=== PATIENT | male | born 1960 | race Caucasian/White ===

== ENCOUNTER 2019-08-11 09:46 | Emergency (ER) | payer MEDICARE, SELFPAY ==
[2019-08-11 09:47] VITALS: BP 179/102; PULSE 100; RESP 19; TEMP 37.2; O2SAT 96; BMI 39.6
[2019-08-11 09:59] VITALS: BP 168/76; PULSE 100; RESP 19; TEMP 37.2; O2SAT 96; O2SAT 98
--- NOTE | 2019-08-11 10:12 | ED.DCSUM_ITS ---
History of Present Illness Chief Complaint: Shortness of Breath Informant: Patient Onset: Yesterday Current Severity: Mild Maximum Severity: Mild Narrative: Patient reports a history of asthma and gets bronchitis approximately twice a year. He states he went out for a walk yesterday after returning home felt increased shortness of breath and as if his lungs were very dry. He has not noted wheezing. He has been using his albuterol MDI without significant improvement. He does report having a mild cough over the past 2 or 3 days. He denies fever but has noted some chills. 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 - Past Medical History (1) Hypertension Status: Chronic (2) Asthma Status: Chronic (3) Sleep apnea Status: Chronic (4) GERD (gastroesophageal reflux disease) Status: Chronic (5) Back pain Status: Chronic (6) Anxiety Status: Chronic Past Medical History - Allergies and Home Meds Allergies/Adverse Reactions: Allergies meloxicam Allergy (Verified 08/11/19 09:47) Anaphylaxis citalopram Adverse Reaction (Verified 08/11/19 09:47) Vomiting verapamil Adverse Reaction (Verified 08/11/19 09:47) Nausea Primary Care Physician: Mervat Avina MD [Primary Care Provider] - 1 Week if not improving Prior records reviewed: Yes Surgical History: noncontributory Smoking Status: Former smoker Review of Systems General: Reports: Chills. Denies: Fever Eyes: Denies: Visual changes - bilaterally ENT: Denies: Bilateral ear pain Cardiovascular: Denies: Chest pain Respiratory: Reports: Dyspnea, Cough. Denies: Sputum Gastrointestinal: Denies: Abdominal pain, Nausea, Vomiting Musculoskeletal: Denies: Swelling, Extremity Pain Skin: Denies: Rash Neurological: Denies: Headache Allergy: Denies: Uticaria Physical Exam Vital Signs/Narrative: Vital Signs Temp Pulse Resp BP Pulse Ox 08/11/19 09:59 99.0 F 100 19 H 168/76 H 96 08/11/19 09:47 99.0 F 100 19 H 179/102 H 96 Inital Vital Signs reviewed: Yes General: Well nourished, Well developed ENT: Moist mucous membranes Neck: Supple Cardiovascular: Regular rate, Regular rhythm Respiratory: No distress, CTA bilaterally Abdomen: Soft, Nontender Extremities: Nontender Skin: Normal color, No rash Neurological: Alert, Normal Sensation Psychological: Normal affect Diagnostic/Tx/Re-eval Chest X-Ray - ED: 1 View, Read by ED Physician, Normal, Heart, Lungs, Mediastinum, No Infiltrates - Medical Decision Making Formal chest x-ray read by myself as no evidence of infiltrate. I discussed with the patient that symptoms are likely viral in nature. At this time I am unable to tell him if he has coronavirus. He does not qualify for testing at this time and is been instructed to monitor his symptoms at home. In light of his frequent bronchitis with asthma he asked about possibly being treated with Zithromax. He states this usually helps some. At this point we will write him a paper prescription. If he does not start to show improvement in the next 24 to 48 hours he will fill the prescription. ED Disposition - Plan for ED Patient: Disposition: Home or Assisted Living Diagnosis: Bronchitis Instructions: ED Bronchitis Asthmatic Prescriptions: Albuterol Aerosols [Ventolin Aerosols] 2.5 mg INHALATION Q4H PRN #25 vial Prescription Printed Azithromycin [Zithromax Z-Vazquez] 250 mg PO UD #1 box Prescription Printed Referrals: Mervat Avina MD [Primary Care Provider] - 1 Week if not improving
--- NOTE | 2019-08-11 10:20 | RAD_ITS ---
STUDY: X-RAY CHEST REASON FOR EXAM: Male, 59 years old. SOB, cough, congestion TECHNIQUE: Single AP portable view of the chest. COMPARISON: Comparison is made with prior examination dated April 08, 2017. FINDINGS: The lungs are clear and expanded. There is no demonstrated pleural abnormality. Normal size heart. Normal mediastinum and miles. Normal visualized pulmonary arteries. Normal visualized aortic arch and descending thoracic aorta. Normal visualized thoracic spine. Normal visualized ribs, clavicles, and shoulders. There is no demonstrated abnormality of the visualized soft tissue structures of the upper abdomen. RAD/Chest 1 View (Portable) IMPRESSION: Normal x-ray examination of the chest. Electronically Signed: Artur Crum, at 12:33 EDT , Service support ,
[2019-08-11 11:04] VITALS: BP 168/76; PULSE 100; RESP 19; TEMP 37.2; O2SAT 96
[2019-08-11 11:45] VITALS: BP 149/78; PULSE 82; RESP 22; O2SAT 97
--- NOTE | 2019-08-11 11:46 | ED.RN ---
THIS NURSE REVIEWED D/C INSTRUCTIONS WITH PT. PT VERBALIZED UNDERSTANDING OF INSTRUCTIONS. PT DENIES FURTHER NEEDS OR QUESTIONS AT THIS TIME. PT AMBULATES FROM ROOM ON OWN WITHOUT ASSISTANCE FROM STAFF
== END 2019-08-11 11:47 | disposition home or self-care (01) ==
PROVIDERS: Emergency Provider Emergency Medicine; PCP Internal Medicine
DX: J40 Bronchitis, not specified as acute or chronic (principal); I10 Essential (primary) hypertension; F41.9 Anxiety disorder, unspecified; Z87.891 Personal history of nicotine dependence
CPT/HCPCS: 71045; 99282

== ENCOUNTER 2020-03-21 21:10 | Emergency (ER) | payer MEDICARE, SELFPAY ==
[2020-03-21 21:11] VITALS: BP 243/113; PULSE 94; RESP 18; TEMP 36.4; O2SAT 97; BMI 37.3
--- NOTE | 2020-03-21 21:24 | ED.DCSUM_ITS ---
History of Present Illness Chief Complaint: General Illness Informant: Patient Onset: Days Context: Gradual Onset Timing: Continuous Narrative: Patient is a 59-year-old male with history of hypertension, anxiety and depr ession presenting with worsening fatigue and generalized malaise. Patient states he started Metformin 8 days ago. Is prescribed by the nurse practitioner at his PCP office. Starting 5 days ago he started feel fatigued have decreased appetite. He also notes a little bit of constipation which he has been taking Dulcolax for. Today when he got home he was having chills but no fevers. He states he has stomach flutters and dry throat. He also associated headache. He has had a dry cough today. He has had some body aches but attribute that to doing yard work on , 3 days ago. 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 He states it is common for his blood pressure to be elevated when he is not feeling good. He states he takes lisinopril 20 mg as well as HCTZ 12.5 mg for blood pressure. He is normal blood pressure is 170/90 per the patient. Patient denies any other complaints at this time. He has any vision changes, numbness or weakness. No associated chest pain. Past Medical History - Allergies and Home Meds Allergies/Adverse Reactions: Allergies meloxicam Allergy (Verified 03/21/20 21:15) Anaphylaxis citalopram Adverse Reaction (Verified 03/21/20 21:15) Vomiting verapamil Adverse Reaction (Verified 03/21/20 21:15) Nausea Primary Care Physician: Mervat Avina MD [Primary Care Provider] - Past Medical History: - - Hypertension, anxiety, diabetes mellitus, asthma Surgical History: noncontributory Lives: Alone Smoking Status: Former smoker Review of Systems General: Reports: Chills, Malaise. Denies: Fever, Sweats Eyes: Denies: Visual changes - bilaterally, Diplopia ENT: Denies: Bilateral ear pain, Rhinorrhea, Sore throat Cardiovascular: Denies: Chest pain, Palpitations Respiratory: Reports: Dyspnea, Cough. Denies: Dyspnea on exertion Gastrointestinal: Reports: Nausea. Denies: Abdominal pain, Vomiting, Diarrhea, Melena, Hematochezia Genitourinary: Denies: Dysuria, Hematuria, Frequency Musculoskeletal: Reports: Myalgias, Back pain. Denies: Extremity Pain Skin: Denies: Rash, Wounds Neurological: Reports: Headache. Denies: Weakness, Numbness Physical Exam Vital Signs/Narrative: Vital Signs Temp Pulse Resp BP Pulse Ox 03/21/20 21:11 97.6 F L 94 18 243/113 H 97 Inital Vital Signs reviewed: Yes General: Well nourished, Well developed, Obese, No Acute Distress Head: Normocephalic, Atraumatic Eyes: Perrl, EOMI ENT: Moist mucous membranes, No rhinorrhea, TM's clear Neck: Supple, Nontender, No JVD Cardiovascular: Regular rate, Regular rhythm, No murmurs Respiratory: No distress, CTA bilaterally, Chest nontender. Negative for: Rhonchi, Wheezing, Diminished Abdomen: Soft, Nontender, Nondistended, Normal bowel sounds. Negative for: Guarding, Rebound tenderness Back: Nontender, Normal Inspection. Negative for: CVA tenderness Extremities: Nontender, No edema. Negative for: Edema Skin: Normal color, No rash Neurological: Alert, Oriented x3, Cranial nerves II-XII grossly intact, Normal Strength, Normal Sensation Psychological: Normal affect, Normal Mood Diagnostic/Tx/Re-eval Chest X-Ray - ED: 1 View, Read by ED Physician, Read by Radiologist, No Acute Disease Clinical Impression(s) from Imaging Studies Chest X-Ray 03/21/20 21:55 IMPRESSION: No acute cardiopulmonary abnormality. at 2209 Reported and signed by: Didi Roland MD Electronically Signed: Didi Roland MD at 22:09 EST Tel , Service support , Laboratory Data 03/21/20 03/21/20 03/21/20 21:50 21:50 21:50 WBC 4.2 L RBC 4.74 Hgb 14.7 Hct 42.9 MCV 90.5 MCH 31.0 MCHC 34.3 RDW Std Deviation 40.6 RDW Coeff of Rose 12.3 Plt Count 231 MPV 9.2 Immature Gran % (Auto) 0.200 Neut % (Auto) 55.1 Lymph % (Auto) 26.2 [place] % (Auto) 14.4 H Eos % (Auto) 3.1 Baso % (Auto) 1.0 Absolute Neuts (auto) 2.3 Absolute Lymphs (auto) 1.09 Nucleated RBC % 0 Sodium 140 Potassium 3.7 Chloride 105 Carbon Dioxide 29.0 Anion Gap 6 BUN 13 Creatinine 1.00 Estim Creat Clear Calc 89.46 Est GFR (MDRD) Af Amer 99 Est GFR (MDRD) Non-Af 82 BUN/Creatinine Ratio 13.0 Glucose 130 H Lactic Acid 1.3 Calcium 9.3 Total Bilirubin 0.50 AST 29 ALT 56 Alkaline Phosphatase 58 Troponin I < 0.015 Total Protein 6.9 Albumin 3.8 Globulin 3.1 Albumin/Globulin Ratio 1.2 Lipase 306 Urine Color Urine Clarity Urine pH Ur Specific [place] Urine Protein Urine Glucose (UA) Urine Ketones Urine Occult Blood Urine Nitrite Urine Bilirubin Urine Urobilinogen Ur Leukocyte Esterase Urine RBC Urine WBC Ur Squamous Epith Cells Urine Bacteria Urine Mucus 03/21/20 21:50 WBC RBC Hgb Hct MCV MCH MCHC RDW Std Deviation RDW Coeff of Rose Plt Count MPV Immature Gran % (Auto) Neut % (Auto) Lymph % (Auto) [place] % (Auto) Eos % (Auto) Baso % (Auto) Absolute Neuts (auto) Absolute Lymphs (auto) Nucleated RBC % Sodium Potassium Chloride Carbon Dioxide Anion Gap BUN Creatinine Estim Creat Clear Calc Est GFR (MDRD) Af Amer Est GFR (MDRD) Non-Af BUN/Creatinine Ratio Glucose Lactic Acid Calcium Total Bilirubin AST ALT Alkaline Phosphatase Troponin I Total Protein Albumin Globulin Albumin/Globulin Ratio Lipase Urine Color Yellow Urine Clarity Clear Urine pH 6.0 Ur Specific [place] 1.010 Urine Protein Negative Urine Glucose (UA) Normal Urine Ketones Negative Urine Occult Blood Negative Urine Nitrite Negative Urine Bilirubin Negative Urine Urobilinogen Normal Ur Leukocyte Esterase Negative Urine RBC 0 SEEN Urine WBC 0 SEEN Ur Squamous Epith Cells 0 SEEN Urine Bacteria 0 SEEN Urine Mucus 0 SEEN - Rhythm Strip Rhythm Strip: Sinus Rhythm Rate: 87 Ectopy: None - EKG Initial EKG Interpretation: Sinus Rhythm, - - Normal sinus rhythm rate of 87 Normal axis Normal intervals Normal ST segments - Medical Decision Making Patient is evaluated for worsening generalized malaise and feeling unwell. He recently started Metformin about a week ago for new onset diabetes mellitus is not sure if this is related. His symptoms actually sound more viral in nature. Patient is quite hypertensive upon arrival but has a normal neurologic exam. I do not think this is a hypertensive emergency. He is given 25 mg dose of hydrochlorothiazide in the ER. On repeat evaluation he still hypertensive but is improving. He is given IV fluids and Zofran. He states he is feeling a little better. Patient be swabbed for Covid but no acute process is found I do not think he needs admission at this time. He is not hypoxic and has clear breath sounds. No acute infiltrate is seen. No significant electrolyte abnormality except for very mild hyperglycemia of 130. He does have a mild leukopenia of 4.2 which could be consistent with a Covid infection. Patient is given quarantine instructions. He is encouraged to follow-up with his primary care doctor. ED Disposition - Plan for ED Patient: Disposition: Home or Assisted Living Diagnosis: Malaise and fatigue, Suspected COVID-19 virus infection, Hypertension Instructions: ED Hypertension Established Prescriptions: Ondansetron [Zofran Odt] 4 mg PO Q8H PRN PRN #10 tab PRN Reason: Nausea Transmission Status: Pending to [id number] Referrals: Mervat Avina MD [Primary Care Provider] - Additional Instructions: The exact cause of your presentation today is not clear. Your blood pressure was quite elevated please follow-up with your primary care doctor for this. I have a lower suspicion this is a medication side effect however it is possible. Your blood work was normal today. You were tested for COVID-19. This will take a couple days to come back. Please quarantine until your results come back.
--- NOTE | 2020-03-21 21:24 | EKG12_ITS ---
Test Reason : DYSRYTHMIA Blood Pressure : / mmHG Vent. Rate : 087 BPM Atrial Rate : 087 BPM P-R Int : 166 ms QRS Dur : 094 ms QT Int : 368 ms P-R-T Axes : 061 005 046 degrees QTc Int : 442 ms Normal sinus rhythm Normal ECG Confirmed by BREANA CARABALLO, MISSY ([id number]), dictionary editor DAFNE BAXTER ([id number]) on 03/22/2020 2:06:48 PM Referred By: HERNÁN Confirmed By:MISSY TOUSSAINT MD
--- NOTE | 2020-03-21 21:55 | RAD_ITS ---
HISTORY: New diabetic. started metformin last week and states has felt Tquot;badTquot; ever since. c/o fatigue, [place], nausea, constipation, bloating ADDITIONAL HISTORY: None provided. EXAMINATION/TECHNIQUE: XR Chest 1 View AP/PA Number of images including paperwork: 1 COMPARISON: 08/11/2019 FINDINGS: LUNGS AND PLEURA: No consolidation, mass or pleural effusion. CARDIAC SILHOUETTE: Unremarkable. MEDIASTINUM AND MARIUSZ: Unremarkable. UPPER ABDOMEN: Unremarkable. SKELETON AND SOFT TISSUES: No acute skeletal findings. Degenerative changes. OTHER DEVICES AND HARDWARE: None. RAD/Chest 1 View (Portable) IMPRESSION: No acute cardiopulmonary abnormality. at 2209 Reported and signed by: Didi Roland MD Electronically Signed: Didi Roland MD at 22:09 EST Tel , Service support ,
[2020-03-21 21:59] LABS: Bacteria 0 SEEN /hpf (None Seen); Mucous, Urine 0 SEEN /hpf (<or=2+); Red Blood Cells-Urine 0 SEEN /hpf (0-5); Squamous Epithelial Cells - UA 0 SEEN /hpf (0-5); White Blood Cells 0 SEEN /hpf (0-5)
[2020-03-21 22:02] LABS: Absolute Lymphocyte Count 1.09 X10^3/uL (0.83-4.51); Absolute Neutrophil Count 2.3 X10^3/uL (2.0-7.7); Basophil# 0.04 X10^3/uL; Color, Urine Yellow (Yellow); Eosinophil# 0.13 X10^3/uL; Eosinophils% 3.1 % (0-5); Glucose, Dipstick Normal (Normal); Hematocrit 42.9 % (40-54); Hemoglobin 14.7 g/dL (13.0-16.5); Ketone-Dipstick Negative (Negative); Leukocyte Esterase-Dipstick Negative /ul (Negative); Lymphocyte # 1.09 X10^3/ul (4.0); Lymphocyte % 26.2 % (19-41); Mean Corp Hgb Conc 34.3 g/dL (32-36); Mean Corpuscular Volume 90.5 fL (80-94); Mean Platelet Vol. 9.2 fl (6.2-12.0); Monocyte% 14.4 % (0-10); NRBC Flagged by Analyzer 0 % (0-5); Neutrophil # 2.29 X10^3/uL (2.7-7.7); Neutrophil % 55.1 % (47-70); Nitrite-Dipstick Negative (Negative); Occult Blood-Urine Negative /ul (Negative); Platelet Count 231 K/mm3 (150-450); Protein-Dipstick Negative (Negative); RBC Distribution Width CV 12.3 % (11.6-14.6); RBC Distribution Width SD 40.6 fl (35.1-43.9); Red Blood Count 4.74 M/mm3 (4.6-6.2); Urine Bilirubin Dipstick Negative (Negative); Urine Clarity Clear (Clear); Urine Urobilinogen Normal (Normal); White Blood Count 4.2 K/mm3 (4.4-11.0)
[2020-03-21] MEDS: Acetaminophen 325 MG Tablet 650 MG PO (22:26)
[2020-03-21 22:32] LABS: Lactic Acid 1.3 mmol/L (0.4-1.9)
[2020-03-21] MEDS: hydroCHLOROthiazide 25 MG Tablet PO (22:34)
[2020-03-21 22:38] LABS: ALB/GLOB Ratio 1.2 RATIO (0.9-2.4); AST(SGOT) 29 U/L (15-37); Alanine Aminotransfer ALT/SGPT 56 U/L (16-61); Albumin, Serum 3.8 g/dL (3.2-5.0); Alkaline Phosphatase 58 U/L (45-117); Anion Gap 6 (5-15); BUN 13 mg/dL (7-18); Calcium,Total 9.3 mg/dL (8.5-10.1); Chloride 105 mmol/L (98-107); EST Glomerular Filtration Rate 82 mL/min (>60); Est Glom Filt Rate - Afr Amer 99 mL/min (>60); Estimated Creatinine Clearance 89.46 ml/min; Globulin 3.1 g/dL (2.2-4.2); Glucose 130 mg/dL (74-106); Lipase 306 U/L (73-393); Potassium 3.7 mmol/L (3.5-5.1); Protein, Total 6.9 g/dL (6.4-8.2); Sodium Level 140 mmol/L (136-145)
[2020-03-21 23:21] VITALS: BP 196/106; PULSE 84; RESP 18; O2SAT 93
[2020-03-21] MEDS: Ondansetron 4 MG/2 ML Vial IV (23:36)
== END 2020-03-21 23:40 | disposition home or self-care (01) ==
PROVIDERS: Emergency Provider Emergency Medicine; PCP Internal Medicine
DX: U07.1 COVID-19 (principal); I10 Essential (primary) hypertension; E11.9 Type 2 diabetes mellitus without complications; J45.909 Unspecified asthma, uncomplicated; K59.00 Constipation, unspecified; F32.9 Major depressive disorder, single episode, unspecified; F41.9 Anxiety disorder, unspecified; E66.9 Obesity, unspecified; Z68.37 Body mass index [BMI] 37.0-37.9, adult; Z79.84 Long term (current) use of oral hypoglycemic drugs; Z79.899 Other long term (current) drug therapy; Z87.891 Personal history of nicotine dependence
CPT/HCPCS: 71045; 80053; 81001; 83605; 83690; 84484; 85025; 87635; 93005; 96361; 96374; 99285; J7040; A4216; J2405; U0002; U0003

== ENCOUNTER 2020-06-06 20:36 | Emergency (ER) | payer MEDICARE, SELFPAY ==
[2020-06-06 20:37] VITALS: BP 213/111; PULSE 80; RESP 17; TEMP 35.3; O2SAT 97; BMI 38.3
--- NOTE | 2020-06-06 21:41 | ED.VIS.BACK ---
History of Present Illness Chief Complaint: Back Informant: Patient Narrative: Patient is a 59-year-old male presenting with back pain. He states he was bending down and twisting when he felt his back spasm. He tried stretching out with no relief. The pain has been persistent and radiates around to his thighs and groin bilaterally. He denies any associated incontinence or paresthesias. Denies any weakness of his legs. Pain is worse with movement and range of motion. He did take Tylenol prior to arrival with no significant relief. Patient did drive himself here. No other complaints at this time. Past Medical History - Allergies and Home Meds Allergies/Adverse Reactions: Allergies meloxicam Allergy (Verified 06/06/20 20:39) Anaphylaxis citalopram Adverse Reaction (Verified 06/06/20 20:39) Vomiting verapamil Adverse Reaction (Verified 06/06/20 20:39) Nausea Primary Care Physician: Mervat Avina MD [Primary Care Provider] - Past Medical History: - - Degenerative disc disease, diabetes, hypertension Surgical History: noncontributory Smoking Status: Former smoker Review of Systems General: Denies: Chills, Fever, Sweats Eyes: Denies: Visual changes - bilaterally, Diplopia ENT: Denies: Rhinorrhea, Sore throat Cardiovascular: Denies: Chest pain, Palpitations Respiratory: Denies: Dyspnea, Cough, Dyspnea on exertion Gastrointestinal: Denies: Abdominal pain, Nausea, Vomiting, Diarrhea, Melena, Hematochezia Genitourinary: Denies: Dysuria, Hematuria, Frequency Musculoskeletal: Reports: Back pain. Denies: Extremity Pain Skin: Denies: Rash, Wounds Neurological: Denies: Headache, Weakness, Numbness Physical Exam Vital Signs/Narrative: Vital Signs Temp Pulse Resp BP Pulse Ox 06/06/20 20:37 95.6 F L 80 17 213/111 H 97 Inital Vital Signs reviewed: Yes General: Well nourished, Well developed, Obese Head: Normocephalic, Atraumatic Eyes: Perrl, EOMI ENT: Moist mucous membranes, No rhinorrhea Neck: Supple, Nontender Cardiovascular: Regular rate, Regular rhythm, No murmurs Respiratory: No distress, CTA bilaterally, Chest nontender Abdomen: Soft, Nontender, Nondistended, Normal bowel sounds Back: Paraspinal Tenderness - Bilateral lumbar region diffusely. Muscle spasm appreciated in the upper lumbar paraspinal muscles., Negative SLR - Right, Negative SLR - Left. Negative for: Spinal tenderness, CVA tenderness Extremeties: Nontender, No edema, Strong Pulses, Symmetric, - - 2+ bilateral DP pulses Skin: Normal color, No rash Neuro: Alert, Oriented, Normal Strength, Normal Sensation, Normal DTR, - - 5 out of 5 strength with dorsi and plantar flexion bilaterally. Negative for: Weakness, Parasthesia Psychological: Normal affect Diagnostic/Tx/Re-eval - Medical Decision Making Patient evaluated for atraumatic low back pain. Appears to be associated with muscle spasm. He is not have physical exam findings consistent with sciatica. He does not have findings concerning for cauda equina syndrome. I did palpate muscle spasms in the paraspinal region of his lumbar back. As patient drove himself here he cannot be given anything sedating. He is given a Lidoderm patch. He took Tylenol prior to arrival. He has a history of anaphylaxis to meloxicam so will not give any NSAIDs at this time. Patient is given a prescription for Flexeril. He is counseled to use heat to for his back and to stretch. He will follow-up with his primary care doctor. Patient is counseled on signs and symptoms requiring return to the emergency room. Patient verbalizes agreement and understand this plan. Patient discharged home in stable and improved condition. ED Disposition - Plan for ED Patient: Disposition: Home or Assisted Living Diagnosis: Spasm of back muscles, Back pain Instructions: ED Back Spasm, No Trauma Prescriptions: cycloBENZAPRine HCl [Flexeril] 10 mg PO TID PRN #20 tab PRN Reason: Muscle Spasm Prescription Printed Referrals: Mervat Avina MD [Primary Care Provider] - Additional Instructions: Use heat to your back. Apply [id number] 4% Lidoderm patches if he found it helpful today. Continue take Tylenol every 6-8 hours for pain. Return to emergency room with worsening symptoms.
[2020-06-06] MEDS: Lidocaine 5% Patch 1 PATCH TOPICAL (21:50)
== END 2020-06-06 22:37 | disposition home or self-care (01) ==
PROVIDERS: Emergency Provider Emergency Medicine; PCP Internal Medicine
DX: M62.830 Muscle spasm of back (principal); I10 Essential (primary) hypertension; E66.9 Obesity, unspecified; Z68.38 Body mass index [BMI] 38.0-38.9, adult; Z79.899 Other long term (current) drug therapy; Z87.891 Personal history of nicotine dependence
CPT/HCPCS: 99282

== ENCOUNTER 2021-02-09 11:56 | Emergency (ER) | payer MEDICARE, SELFPAY ==
[2021-02-09 11:57] VITALS: BP 196/108; PULSE 100; RESP 18; TEMP 36.8; O2SAT 99; BMI 37.8
--- NOTE | 2021-02-09 12:28 | EKG12_ITS ---
Test Reason : SOB Blood Pressure : / mmHG Vent. Rate : 085 BPM Atrial Rate : 085 BPM P-R Int : 156 ms QRS Dur : 092 ms QT Int : 378 ms P-R-T Axes : 067 007 053 degrees QTc Int : 449 ms Normal sinus rhythm Normal ECG Confirmed by BREANA CARABALLO, MISSY ([id number]), publications editor ISELA GILES ([id number]) on 02/14/2021 7:31:18 AM Referred By: JORGE ALBERTO Confirmed By:MISSY TOUSSAINT MD
--- NOTE | 2021-02-09 12:29 | EDS_ITS ---
HPI History of Present Illness Chief Complaint: General Illness Narrative Narrative: Presented generalized illness stating not feeling well today. Headache increasing congestion today. He states 15 days ago had his congestion mild cough, he was tested for Covid 2 days after at [facility] and was negative. He is discussed with his PCP he finished a Z-Vazquez currently on a steroid taper he is feeling better up till yesterday. He took laxative yesterday therefore had diarrhea. Today congestion just not feeling well. No nausea or vomiting. No chest pains. Nonproductive cough. He is not Covid vaccinated. He states he had Covid infection this past February with transient loss of taste and smell and fatigued at that time. Asthma history. Hypertension history. Decreased p.o. intake. Prior similar symptoms: Yes PFSH [facility], LAT[facility] Medical History (Updated 02/09/21 @ 14:[address] Robi Chappell DO) Anxiety Asthma GERD (gastroesophageal reflux disease) HTN (hypertension) Home Medications albuterol sulfate [Ventolin Hfa] 1 puff INHALATION Q4H PRN PRN 05/05/13 [History Last Taken Unknown] lisinopril 40 mg PO DAILY 05/05/13 [History Last Taken Unknown] escitalopram oxalate 10 mg PO DAILY 07/23/15 [History Last Taken Unknown] albuterol sulfate 2.5 mg INHALATION Q4H PRN #25 vial 08/11/19 [Rx Last Taken Unknown] hydrochlorothiazide 12.5 mg PO DAILY 08/11/19 [History Last Taken Unknown] loratadine 10 mg PO DAILY 08/11/19 [History Last Taken Unknown] Cholecalciferol (Vitamin D3) [Vitamin D3] 5,000 unit PO DAILY 06/06/20 [History Last Taken Unknown] ascorbic acid (vitamin C) 500 mg PO DAILY 06/06/20 [History Last Taken Unknown] vitamin E 200 unit PO DAILY 06/06/20 [History Last Taken Unknown] felodipine 5 mg PO DAILY 02/09/21 [History Last Taken Unknown] fluticasone propion-salmeterol [Wixela Inhub] 1 inh INHALATION DAILY 02/09/21 [History Last Taken Unknown] prednisone See Taper PO DAILY 02/09/21 [History Last Taken Unknown] Allergy/AdvReac Type Severity Reaction Status Date / Time meloxicam Allergy Anaphylaxis Verified 02/09/21 11:59 citalopram AdvReac Vomiting Verified 02/09/21 11:59 verapamil AdvReac Nausea Verified 02/09/21 11:59 Social History Smoking Status: Former smoker ROS ROS ED Constitutional Constitutional ED: Denies chills, fever(s) or sweats Eyes Eyes: Denies change in vision ENT ENT ED: Reports other Details: Sinus congestion ; Denies dysphagia or sore throat Cardiovascular Cardiovascular: Denies chest pain, leg edema, palpitations or racing heartbeat Respiratory/Chest Respiratory/Chest: Reports cough; Denies dyspnea or dyspnea on exertion Gastrointestinal Gastrointestinal: Denies abdominal pain, diarrhea, nausea or vomiting Genitourinary Genitourinary ED: Denies dysuria, hematuria or urinary frequency Musculoskeletal Musculoskeletal: Denies back pain, extremity pain or neck pain Integumentary Denies rash or wounds Neurologic Neurologic: Reports headache(s); Denies paresthesias or weakness EXAM Physical Exam Const Vital Signs: 02/09/21 11:57 02/09/21 12:55 02/09/21 12:56 Temperature 98.2 F Temperature Source Temporal Pulse Rate 100 Respiratory Rate 18 Respiratory Effort Normal Non-Labored Respiratory Pattern Normal Blood Pressure 196/108 H 194/99 H Blood Pressure Mean 137 130 Pulse Ox 99 Oxygen Delivery Method Room Air 02/09/21 14:33 02/09/21 15:15 Temperature Temperature Source Pulse Rate 87 87 Respiratory Rate 13 16 Respiratory Effort Respiratory Pattern Blood Pressure 181/105 H 180/93 H Blood Pressure Mean 130 Pulse Ox 96 98 Oxygen Delivery Method Room Air Positive well nourished and well developed General Appearance ED: well developed and NAD HEENT Reports TM's clear and dry mucous membranes normocephalic and atraumatic Tympanic Membrane ED: Yes TM's clear Mouth ED: Yes dry mucous membranes Mouth: dry mucous membranes Eyes PERRL, EOMs intact bilaterally and conjunctivae normal General Eye ED: Yes normal appearance of both eyes Neck no lymphadenopathy and supple Neck Narrative: No meningismus General: Negative for tenderness Chest Wall Chest: Negative for tenderness Resp normal respiratory effort and normal air movement Effort and Inspection: symmetric chest movement; Negative for respiratory distress Cardio regular rate, regular rhythm and no murmurs Peripheral Pulses: pulses 2+ throughout GI normal to inspection, nondistended, normoactive bowel sounds and non-tender Palpation: Negative for guarding or rebound tenderness present Back/Spine no CVA tenderness and no thoracic nor lumbar tenderness Extremity normal to inspection General Extremety ED: Negative for edema or tenderness General Extremity: Negative for edema Neuro oriented x3, CN's II-XII intact bilaterally and no sensory deficits noted Sensorium / Orientation: awake and alert Skin no rashes or lesions noted and no wounds MDM MDM MDM Narrative Medical decision making narrative: Patient presenting headache recurrent nonproductive cough since yesterday. Chest x-ray negative. EKG labs stable. Given IV fluids. Patient more reassured. Vitals stable pulse ox 98%. Send out Covid testing for PCR as an outpatient. He will continue oral hydration at home. All questions were answered. Lab Data Attestation: I reviewed the patient's lab results. Labs: Laboratory Results - last 24 hr 02/09/21 02/09/21 02/09/21 12:45 12:45 15:05 WBC 7.5 RBC 5.13 Hgb 16.1 Hct 46.2 MCV 90.1 MCH 31.4 MCHC 34.8 RDW Std Deviation 40.9 RDW Coeff of Rose 12.5 Plt Count 279 MPV 8.5 Immature Gran % (Auto) 0.300 Neut % (Auto) 65.5 Lymph % (Auto) 23.1 [place] % (Auto) 8.0 Eos % (Auto) 2.3 Baso % (Auto) 0.8 Absolute Neuts (auto) 5.0 Absolute Lymphs (auto) 1.74 Nucleated RBC % 0 Sodium 138 Potassium 4.0 Chloride 100 Carbon Dioxide 32.0 Anion Gap 6 BUN 15 Creatinine 1.06 Estim Creat Clear Calc 78.43 Est GFR (MDRD) Af Amer 92 Est GFR (MDRD) Non-Af 76 BUN/Creatinine Ratio 14.2 Glucose 115 H Calcium 9.0 COVID-19 (NAVNEET) Cancelled Radiography Chest X-Ray - ED: 1 View, Read by ED Physician and Read by Radiologist Diagnostic Testing: Radiology Impression Chest X-Ray 02/09/21 12:50 IMPRESSION: Normal x-ray examination of the chest. Electronically Signed: Artur Crum MD at 13:12 EDT , Service support , EKG Initial EKG: Attestation: I personally reviewed and interpreted this EKG as follows: Comments: Sinus rate of 85, no ST or T wave changes. Discharge Plan Triage Chief Complaint: General Illness ED Provider: Robi Chappell Dx/Rx/DC Orders Clinical Impression: Suspected 2019-nCoV infection, Viral URI, Headache Instructions: Understanding Headache Pain, ED URI, Viral, No Abx (Adult) Prescriptions: No Action lisinopril 10 MG tablet 40 mg PO DAILY RF: 0 albuterol sulfate [Ventolin HFA] 1 INHALER inhaler 1 puff inhalation Q4H PRN PRN (Reason: Dyspnea) RF: 0 escitalopram oxalate 10 MG tablet 10 mg PO DAILY RF: 0 hydrochlorothiazide 25 MG tablet 12.5 mg PO DAILY RF: 0 loratadine 10 MG tablet 10 mg PO DAILY RF: 0 albuterol sulfate 2.5 MG/3 ML solution for nebulization 2.5 mg inhalation Q4H PRN Qty: 25 RF: 0 vitamin E 200 UNIT capsule 200 unit PO DAILY RF: 0 ascorbic acid (vitamin C) 500 MG capsule 500 mg PO DAILY RF: 0 Cholecalciferol (Vitamin D3) [Vitamin D3] 5,000 UNIT capsule 5,000 unit PO DAILY RF: 0 felodipine 5 mg tablet extended release 24 hr 5 mg PO DAILY RF: 0 fluticasone propion-salmeterol [Wixela Inhub] 100-50 mcg/dose blister with device 1 inh INHALATION DAILY RF: 0 prednisone 10 mg tablet See Taper mg PO DAILY RF: 0 Primary Care Provider: Mervat Avina Referrals: Mervat Avina MD [Primary Care Provider] - 1 Week if not improving Activity Restrictions/Additional Instructions: Covid PCR pending Disposition Disposition: Home, Self Care Discharge Date/Time: 02/09/21 15:16
[2021-02-09] MEDS: 0.9% Normal Saline 1,000 ML 1000 ML IV (12:43)
--- NOTE | 2021-02-09 12:50 | RAD_ITS ---
STUDY: X-RAY CHEST REASON FOR EXAM: Male, 60 years old. Cough TECHNIQUE: Single AP portable view of the chest. COMPARISON: Comparison is made with prior study dated 03/21/2020. FINDINGS: EKG electrodes are seen. The lungs are clear and expanded. There is no demonstrated pleural abnormality. Normal size heart. Normal mediastinum and miles. Normal visualized pulmonary arteries. Normal visualized aortic arch and descending thoracic aorta. Normal visualized thoracic spine. Normal visualized ribs, clavicles, and shoulders. There is no demonstrated abnormality of the visualized soft tissue structures of the upper abdomen. RAD/Chest 1 View (Portable) IMPRESSION: Normal x-ray examination of the chest. Electronically Signed: Artur Crum MD at 13:12 EDT , Service support ,
[2021-02-09 12:55] VITALS: BP 194/99
[2021-02-09 12:58] LABS: Absolute Lymphocyte Count 1.74 X10^3/uL (0.83-4.51); Basophil# 0.06 X10^3/uL; Basophil% 0.8 % (0-1); Eosinophil# 0.17 X10^3/uL; Eosinophils% 2.3 % (0-5); Hematocrit 46.2 % (40-54); Hemoglobin 16.1 g/dL (13.0-16.5); Lymphocyte # 1.74 X10^3/ul (0.83-4.51); Lymphocyte % 23.1 % (19-41); Mean Corp Hgb Conc 34.8 g/dL (32-36); Mean Corpuscular Hgb 31.4 pg (27.0-32.0); Mean Corpuscular Volume 90.1 fL (80-94); Mean Platelet Vol. 8.5 fl (6.2-12.0); NRBC Flagged by Analyzer 0 % (0-5); Neutrophil # 4.95 X10^3/uL (2.7-7.7); Neutrophil % 65.5 % (47-70); Platelet Count 279 K/mm3 (150-450); RBC Distribution Width CV 12.5 % (11.6-14.6); RBC Distribution Width SD 40.9 fl (35.1-43.9); Red Blood Count 5.13 M/mm3 (4.6-6.2); White Blood Count 7.5 K/mm3 (4.4-11.0)
[2021-02-09 13:12] LABS: Anion Gap 6 (5-15); BUN 15 mg/dL (7-18); BUN/Creat Ratio 14.2 RATIO (10-20); Chloride 100 mmol/L (98-107); Creatinine, Serum 1.06 mg/dL (0.70-1.30); EST Glomerular Filtration Rate 76 mL/min (>60); Est Glom Filt Rate - Afr Amer 92 mL/min (>60); Estimated Creatinine Clearance 78.43 ml/min; Glucose 115 mg/dL (74-106); Sodium Level 138 mmol/L (136-145)
[2021-02-09 14:33] VITALS: BP 181/105; PULSE 87; RESP 13; O2SAT 96
[2021-02-09 15:15] VITALS: BP 180/93; PULSE 87; RESP 16; O2SAT 98
[2021-02-09 17:44] LABS: Probe Check PASS; Specimen Processing Control PASS
== END 2021-02-09 15:16 | disposition home or self-care (01) ==
PROVIDERS: Emergency Provider Emergency Medicine; PCP Internal Medicine
DX: Z20.822 Contact with and (suspected) exposure to COVID-19 (principal); J06.9 Acute upper respiratory infection, unspecified; R51.9 Headache, unspecified; I10 Essential (primary) hypertension; J45.909 Unspecified asthma, uncomplicated; Z79.51 Long term (current) use of inhaled steroids; Z79.52 Long term (current) use of systemic steroids; Z79.899 Other long term (current) drug therapy; Z87.891 Personal history of nicotine dependence
CPT/HCPCS: 71045; 80048; 85025; 87635; 93005; 96360; 96361; 99285; J7030; U0005; U0003

== ENCOUNTER 2021-02-11 01:34 | Emergency (ER) | payer MEDICARE, SELFPAY ==
[2021-02-11 01:34] VITALS: BP 209/103; PULSE 83; RESP 22; TEMP 36.6; O2SAT 99; BMI 39.2
--- NOTE | 2021-02-11 02:45 | RAD_ITS ---
STUDY: X-RAY CHEST REASON FOR EXAM: Male, 60 years old. Hypertension TECHNIQUE: AP COMPARISON: 02/09/2021. FINDINGS: The lungs are clear and expanded. There is no demonstrated pleural abnormality. Normal size heart. Normal mediastinum and miles. Normal visualized pulmonary arteries. Normal visualized aortic arch and descending thoracic aorta. Normal visualized thoracic spine. Normal visualized ribs, clavicles, and shoulders. There is no demonstrated abnormality of the visualized soft tissue structures of the upper abdomen. RAD/Chest 1 View (Portable) IMPRESSION: Negative x-ray examination of the chest. Electronically Signed: Darwin Werner MD at 3:26 EDT Tel , Service support ,
--- NOTE | 2021-02-11 02:46 | EKG12_ITS ---
Test Reason : HTN Blood Pressure : / mmHG Vent. Rate : 071 BPM Atrial Rate : 071 BPM P-R Int : 166 ms QRS Dur : 090 ms QT Int : 388 ms P-R-T Axes : 058 020 039 degrees QTc Int : 421 ms Normal sinus rhythm Normal ECG Confirmed by BREANA CARABALLO, MISSY ([id number]), image editor ISELA GILES ([id number]) on 02/14/2021 8:06:04 AM Referred By: DEVORA Confirmed By:MISSY TOUSSAINT MD
[2021-02-11] MEDS: cloNIDine HCl 0.1 MG Tablet PO (02:52)
[2021-02-11 02:58] LABS: Absolute Lymphocyte Count 2.42 X10^3/uL (0.83-4.51); Absolute Neutrophil Count 2.8 X10^3/uL (2.0-7.7); Basophil# 0.05 X10^3/uL; Basophil% 0.8 % (0-1); Eosinophil# 0.18 X10^3/uL; Hematocrit 42.2 % (40-54); Hemoglobin 14.7 g/dL (13.0-16.5); Lymphocyte # 2.42 X10^3/ul (0.83-4.51); Lymphocyte % 40.7 % (19-41); Mean Corp Hgb Conc 34.8 g/dL (32-36); Mean Corpuscular Hgb 31.5 pg (27.0-32.0); Mean Corpuscular Volume 90.4 fL (80-94); Mean Platelet Vol. 8.8 fl (6.2-12.0); Monocyte# 0.48 X10^3/uL; Monocyte% 8.1 % (0-10); NRBC Flagged by Analyzer 0 % (0-5); Neutrophil # 2.79 X10^3/uL (2.7-7.7); Neutrophil % 47.1 % (47-70); Platelet Count 257 K/mm3 (150-450); RBC Distribution Width CV 12.3 % (11.6-14.6); RBC Distribution Width SD 40.4 fl (35.1-43.9); Red Blood Count 4.67 M/mm3 (4.6-6.2); White Blood Count 5.9 K/mm3 (4.4-11.0)
[2021-02-11 03:13] LABS: ALB/GLOB Ratio 1.1 RATIO (0.9-2.4); AST(SGOT) 21 U/L (15-37); Alanine Aminotransfer ALT/SGPT 54 U/L (16-61); Albumin, Serum 3.4 g/dL (3.2-5.0); Alkaline Phosphatase 55 U/L (45-117); Anion Gap 4 (5-15); BUN 13 mg/dL (7-18); BUN/Creat Ratio 13.3 RATIO (10-20); Calcium,Total 8.5 mg/dL (8.5-10.1); Chloride 105 mmol/L (98-107); Creatinine, Serum 0.98 mg/dL (0.70-1.30); EST Glomerular Filtration Rate 84 mL/min (>60); Est Glom Filt Rate - Afr Amer 101 mL/min (>60); Estimated Creatinine Clearance 84.84 ml/min; Globulin 3.1 g/dL (2.2-4.2); Glucose 121 mg/dL (74-106); Protein, Total 6.5 g/dL (6.4-8.2); Sodium Level 140 mmol/L (136-145); Troponin-I HS 11 pg/mL (3.0-78.0)
--- NOTE | 2021-02-11 03:29 | EX.ED.DYSGE1 ---
HPI History of Present Illness Chief Complaint: Hypertension Informant: patient Onset/Context/Timing Onset: Today Context: Sudden Onset Timing: Continuous Quality: Blurry vision Location: Left eye Worsened by: Nothing Relieved by: Nothing Narrative Narrative: Patient presents with elevated blood pressure that began today. Patient states he felt like he had some blurred vision in his left eye. Patient checked his blood pressure at home and it was 200/122. Patient denies any chest pain or shortness of breath. Patient admits to mild headache. Patient also admits to some pain in his neck. Patient states he was tested for Covid 2 days ago and was negative. Patient denies any other symptoms. Patient states nothing makes it better nothing makes it worse. [facility] Medical History (Updated 02/11/21 @ 04:[address] Mati Echevarria, ) Anxiety Asthma GERD (gastroesophageal reflux disease) HTN (hypertension) Home Medications albuterol sulfate [Ventolin Hfa] 1 puff INHALATION Q4H PRN PRN 05/05/13 [History Last Taken Unknown] lisinopril 40 mg PO DAILY 05/05/13 [History Last Taken Unknown] escitalopram oxalate 10 mg PO DAILY 07/23/15 [History Last Taken Unknown] albuterol sulfate 2.5 mg INHALATION Q4H PRN #25 vial 08/11/19 [Rx Last Taken Unknown] hydrochlorothiazide 12.5 mg PO DAILY 08/11/19 [History Last Taken Unknown] loratadine 10 mg PO DAILY 08/11/19 [History Last Taken Unknown] Cholecalciferol (Vitamin D3) [Vitamin D3] 5,000 unit PO DAILY 06/06/20 [History Last Taken Unknown] ascorbic acid (vitamin C) 500 mg PO DAILY 06/06/20 [History Last Taken Unknown] vitamin E 200 unit PO DAILY 06/06/20 [History Last Taken Unknown] felodipine 5 mg PO DAILY 02/09/21 [History Last Taken Unknown] fluticasone propion-salmeterol [Wixela Inhub] 1 inh INHALATION DAILY 02/09/21 [History Last Taken Unknown] prednisone See Taper PO DAILY 02/09/21 [History Last Taken Unknown] Allergy/AdvReac Type Severity Reaction Status Date / Time meloxicam Allergy Anaphylaxis Verified 02/09/21 11:59 citalopram AdvReac Vomiting Verified 02/09/21 11:59 verapamil AdvReac Nausea Verified 02/09/21 11:59 Surgical History (Updated 02/11/21 @ 03:[address] Mati Echevarria DO) History of total right hip replacement Social History Smoking Status: Former smoker ROS ROS ED Constitutional Constitutional ED: Denies chills or fever(s) Eyes Eyes: Reports blurry vision; Denies change in vision ENT ENT ED: Denies rhinorrhea or sore throat Cardiovascular Cardiovascular: Denies chest pain or palpitations Respiratory/Chest Respiratory/Chest: Denies cough or dyspnea Gastrointestinal Gastrointestinal: Denies nausea or vomiting Genitourinary Genitourinary ED: Denies dysuria or hematuria Musculoskeletal Musculoskeletal: Reports neck pain; Denies back pain Integumentary Denies abscess or rash Neurologic Neurologic: Reports headache(s); Denies weakness Allergic/Immunologic Allergic/Immunologic ED: Denies mouth swelling or urticaria EXAM Physical Exam Const Vital Signs: 02/11/21 01:34 02/11/21 03:38 Temperature 98 F Temperature Source Oral Pulse Rate 83 74 Respiratory Rate 22 H 20 H Blood Pressure 209/103 H 155/101 H Blood Pressure Mean 138 119 Pulse Ox 99 95 Oxygen Delivery Method Room Air Room Air Positive well nourished and well developed General Appearance ED: well developed HEENT Reports moist mucous membranes Neck supple and no JVD Resp normal respiratory effort and clear to auscultation bilaterally Cardio regular rate, regular rhythm and no murmurs GI normal to inspection, nondistended, normoactive bowel sounds and non-tender Palpation: soft Extremity normal to inspection General Extremety ED: Negative for edema or tenderness General Extremity: Negative for edema Neuro oriented x3, CN's II-XII intact bilaterally and no sensory deficits noted Sensorium / Orientation: alert Motor Exam: strength 5/5 throughout Psych mental status grossly normal Skin no rashes or lesions noted MDM MDM MDM Narrative Medical decision making narrative: Patient was given a dose of clonidine here. EKG was obtained. On my interpretation, it showed a normal sinus rhythm with a rate of 71. PA interval, QRS interval, and QTc intervals were all normal. Leonard was normal. There are no acute ST or T wave changes. Portable 1 view chest x-ray was obtained. On my interpretation, lung smith are clear. There is normal cardiac silhouette. Bony thorax is normal. There is no acute process noted. Radiologist also interpreted the x-ray and agrees. CBC and comprehensive metabolic profile were within normal limits. High-sensitivity troponin was normal. 2-hour repeat high-sensitivity troponin was normal. Patient's blood pressure improved to 147/91. Patient is feeling better on reevaluation. Patient was instructed to keep a log of his blood pressures. Patient was instructed to follow-up with his primary care physician in 5 to 7 days. Patient understood and was agreeable with the plan. All questions were answered. Lab Data Attestation: I reviewed the patient's lab results. Labs: Laboratory Results - last 24 hr 02/11/21 02/11/21 02/11/21 02:14 02:14 04:10 WBC 5.9 RBC 4.67 Hgb 14.7 Hct 42.2 MCV 90.4 MCH 31.5 MCHC 34.8 RDW Std Deviation 40.4 RDW Coeff of Rose 12.3 Plt Count 257 MPV 8.8 Immature Gran % (Auto) 0.300 Neut % (Auto) 47.1 Lymph % (Auto) 40.7 [place] % (Auto) 8.1 Eos % (Auto) 3.0 Baso % (Auto) 0.8 Absolute Neuts (auto) 2.8 Absolute Lymphs (auto) 2.42 Nucleated RBC % 0 Sodium 140 Potassium 4.0 Chloride 105 Carbon Dioxide 31.0 Anion Gap 4 L BUN 13 Creatinine 0.98 Estim Creat Clear Calc 84.84 Est GFR (MDRD) Af Amer 101 Est GFR (MDRD) Non-Af 84 BUN/Creatinine Ratio 13.3 Glucose 121 H Calcium 8.5 Total Bilirubin 0.40 AST 21 ALT 54 Alkaline Phosphatase 55 Troponin I High Sens 11 14 Total Protein 6.5 Albumin 3.4 Globulin 3.1 Albumin/Globulin Ratio 1.1 Radiography Chest X-Ray - ED: 1 View, Read by ED Physician, Read by Radiologist and Normal Diagnostic Testing: Radiology Impression Chest X-Ray 02/11/21 02:45 IMPRESSION: Negative x-ray examination of the chest. Electronically Signed: Darwin Werner MD at 3:26 EDT Tel , Service support , EKG Initial EKG: Attestation: I personally reviewed and interpreted this EKG as follows: Interpretation: Sinus Rhythm (71) and No Acute Injury Pattern Discharge Plan Triage Chief Complaint: Hypertension ED Provider: Mati Echevarria Dx/Rx/DC Orders Clinical Impression: Hypertension Instructions: ED Hypertension, Established Prescriptions: No Action lisinopril 10 MG tablet 40 mg PO DAILY RF: 0 albuterol sulfate [Ventolin HFA] 1 INHALER inhaler 1 puff inhalation Q4H PRN PRN (Reason: Dyspnea) RF: 0 escitalopram oxalate 10 MG tablet 10 mg PO DAILY RF: 0 hydrochlorothiazide 25 MG tablet 12.5 mg PO DAILY RF: 0 loratadine 10 MG tablet 10 mg PO DAILY RF: 0 albuterol sulfate 2.5 MG/3 ML solution for nebulization 2.5 mg inhalation Q4H PRN Qty: 25 RF: 0 vitamin E 200 UNIT capsule 200 unit PO DAILY RF: 0 ascorbic acid (vitamin C) 500 MG capsule 500 mg PO DAILY RF: 0 Cholecalciferol (Vitamin D3) [Vitamin D3] 5,000 UNIT capsule 5,000 unit PO DAILY RF: 0 felodipine 5 mg tablet extended release 24 hr 5 mg PO DAILY RF: 0 fluticasone propion-salmeterol [Wixela Inhub] 100-50 mcg/dose blister with device 1 inh INHALATION DAILY RF: 0 prednisone 10 mg tablet See Taper mg PO DAILY RF: 0 Primary Care Provider: Mervat Avina Referrals: Mervat Avina MD [Primary Care Provider] - 5-7 Days Disposition Disposition: Home, Self Care
[2021-02-11 03:38] VITALS: BP 155/101; PULSE 74; RESP 20; O2SAT 95
[2021-02-11 04:35] LABS: Troponin-I HS 14 pg/mL (3.0-78.0)
[2021-02-11 04:47] VITALS: BP 147/91; PULSE 72; RESP 18; O2SAT 95
== END 2021-02-11 04:47 | disposition home or self-care (01) ==
PROVIDERS: Emergency Provider Emergency Medicine; PCP Internal Medicine
DX: I10 Essential (primary) hypertension (principal); J45.909 Unspecified asthma, uncomplicated; Z79.51 Long term (current) use of inhaled steroids; Z87.891 Personal history of nicotine dependence; Z79.899 Other long term (current) drug therapy
CPT/HCPCS: 71045; 80053; 84484; 85025; 93005; 99284; A4216

== ENCOUNTER 2021-05-05 05:33 | Emergency (ER) | payer MEDICARE, SELFPAY ==
[2021-05-05 05:34] VITALS: BP 186/96; PULSE 89; RESP 18; TEMP 36.6; O2SAT 98; BMI 38.9
--- NOTE | 2021-05-05 06:03 | EKG12_ITS ---
Test Reason : GENERAL ILLNESS Blood Pressure : / mmHG Vent. Rate : 084 BPM Atrial Rate : 084 BPM P-R Int : 156 ms QRS Dur : 096 ms QT Int : 380 ms P-R-T Axes : 066 007 049 degrees QTc Int : 449 ms Normal sinus rhythm Normal ECG Confirmed by BREANA CARABALLO, MISSY ([id number]), editor magazine ISELA GILES ([id number]) on 05/10/2021 1:34:08 PM Referred By: FARNAZ Confirmed By:MISSY TOUSSAINT MD
--- NOTE | 2021-05-05 06:04 | EX.ED.DYSGE1 ---
HPI History of Present Illness Chief Complaint: General Illness Detail of Chief Complaint: Generalized weakness and fatigue Informant: patient Narrative Narrative: Patient presents with generalized weakness and fatigue for about a week. He complains of pain in his right groin that woke him up from sleep around 4 AM and it was like a cramp in the muscle of the thigh was quite firm. Patient states that people at work are out with Covid. He does have a slight cough. He does have history of asthma. Patient denies any fevers. He has had some mild body aches. No recent travel or surgery. He has not been vaccinated against Covid. [facility] Medical History (Updated 05/05/21 @ 07:[address] Samreen Babcock, ) Anxiety Asthma Depression GERD (gastroesophageal reflux disease) HTN (hypertension) Home Medications albuterol sulfate [Ventolin Hfa] 1 puff INHALATION Q4H PRN PRN 05/05/13 [History Last Taken Unknown] lisinopril 40 mg PO DAILY 05/05/13 [History Last Taken Unknown] escitalopram oxalate 10 mg PO DAILY 07/23/15 [History Last Taken Unknown] albuterol sulfate 2.5 mg INHALATION Q4H PRN #25 vial 08/11/19 [Rx Last Taken Unknown] hydrochlorothiazide 12.5 mg PO DAILY 08/11/19 [History Last Taken Unknown] loratadine 10 mg PO DAILY 08/11/19 [History Last Taken Unknown] Cholecalciferol (Vitamin D3) [Vitamin D3] 5,000 unit PO DAILY 06/06/20 [History Last Taken Unknown] ascorbic acid (vitamin C) 500 mg PO DAILY 06/06/20 [History Last Taken Unknown] vitamin E 200 unit PO DAILY 06/06/20 [History Last Taken Unknown] felodipine 5 mg PO DAILY 02/09/21 [History Last Taken Unknown] fluticasone propion-salmeterol [Wixela Inhub] 1 inh INHALATION DAILY 02/09/21 [History Last Taken Unknown] prednisone See Taper PO DAILY 02/09/21 [History Last Taken Unknown] hydrocortisone 1 applic TOPICAL BID 10 Days #20 g 05/05/21 [Rx Last Taken Unknown] Allergy/AdvReac Type Severity Reaction Status Date / Time meloxicam Allergy Anaphylaxis Verified 05/05/21 05:38 citalopram AdvReac Vomiting Verified 05/05/21 05:38 verapamil AdvReac Nausea Verified 05/05/21 05:38 Surgical History (Updated 02/11/21 @ 03:[address] Mati Echevarria DO) History of total right hip replacement Social History Smoking Status: Former smoker ROS ROS ED Constitutional Constitutional ED: Reports systems reviewed and no addt'l complaints, except as documented; Denies body ache(s), change in weight or chills Eyes Eyes: Denies acute decrease in peripheral vision, change in vision, double vision or loss of vision ENT ENT ED: Reports none; Denies ear pain, lip swelling, loss taste/smell, neck pain, otalgia or sore throat Cardiovascular Cardiovascular: Reports none; Denies abdominal pain, chest pain with activity, leg edema, lightheadedness, palpitations, rapid heart rate or syncope Respiratory/Chest Respiratory/Chest: Reports none and cough; Denies change in mental status, dry cough, dyspnea, hemoptysis, shortness of breath at rest or shortness of breath with exertion Gastrointestinal Gastrointestinal: Reports none; Denies abdominal pain, change in stool character, diarrhea, hematemesis, hematochezia, melena, rectal bleeding or vomiting Genitourinary Genitourinary ED: Reports none; Denies abdominal discomfort, anuria, dysuria, genital pain or polyuria Musculoskeletal Musculoskeletal: Reports none and myalgias; Denies arthralgias, back pain, difficulty walking, extremity pain or muscle weakness Integumentary Reports none and rash; Denies abscess Neurologic Neurologic: Reports none and weakness; Denies abnormal gait, confusion, focal weakness, frequent falls, headache(s), loss of vision, numbness, paresthesias, radicular pain or vertigo Psychiatric Psychiatric: Reports systems reviewed and no addt'l complaints, except as documented and none; Denies behavioral changes, confusion, difficulty concentrating, hallucinations, suicidal ideation, tactile hallucinations or visual hallucinations Endocrine Endocrinology: Denies none, cold intolerance, excessive sweating, fatigue or heat intolerance Hematologic/Lymphatic Hematologic/Lymphatic: Reports none; Denies anemia, easy bleeding or easy bruising Allergic/Immunologic Allergic/Immunologic ED: Denies as per HPI, none, lip swelling, mouth swelling, throat swelling, tongue swelling or hives EXAM Physical Exam Const Vital Signs: 05/05/21 05:34 05/05/21 05:38 05/05/21 06:37 Temperature 97.8 F 97.8 F Temperature Source Oral Oral Pulse Rate 89 91 Respiratory Rate 18 15 Respiratory Effort Normal Respiratory Pattern Normal Blood Pressure 186/96 H 119/97 H Blood Pressure Mean 126 104 Pulse Ox 98 95 Oxygen Delivery Method Room Air Room Air Positive well nourished and well developed General Appearance ED: well developed and NAD HEENT Reports TM's clear and moist mucous membranes normocephalic and atraumatic; Negative for trauma or tenderness Tympanic Membrane ED: Yes TM's clear Eyes PERRL and EOMs intact bilaterally General Eye ED: Negative for pale conjunctiva or scleral icterus Neck no lymphadenopathy, supple and no JVD General: Negative for tenderness Chest Wall inspection of chest normal and palpation of chest normal Chest: Negative for tenderness Resp normal respiratory effort and clear to auscultation bilaterally Effort and Inspection: Negative for respiratory distress or pain with movement Auscultation: Negative for rhonchi, wheezes or diminished lung sounds Cardio regular rate, regular rhythm, S1 normal heart sound, S2 normal heart sound and no murmurs Peripheral Pulses: pulses 2+ throughout GI normal to inspection, nondistended, normoactive bowel sounds, soft to palpation, non-tender, non-distended and no masses Back/Spine no CVA tenderness and no thoracic nor lumbar tenderness Extremity normal to inspection General Extremety ED: Negative for edema General Extremity: Negative for edema Neuro oriented x3, CN's II-XII intact bilaterally, no sensory deficits noted and gait normal Sensorium / Orientation: awake, alert, oriented to person, oriented to place and oriented to time Motor Exam: strength 5/5 throughout and strength abnormal Psych mental status grossly normal Skin no wounds Skin Narrative: Evaluation of his left lower extremity anterior han reveals a slightly raised erythematous rash. No vesicles. Suspect contact dermatitis. It is not cellulitic. No vesicles noted. MDM MDM MDM Narrative Medical decision making narrative: IV line established on arrival. Lab work-up was unremarkable. COVID-19 test was negative. Patient will be given a prescription for hydrocortisone cream to apply to his left lower extremity. Patient advised to push fluids and use ibuprofen or Tylenol for discomfort. I suspect likely viral upper respiratory infection. Lab Data Attestation: I reviewed the patient's lab results. Labs: Laboratory Results - last 24 hr 05/05/21 05/05/21 06:13 06:13 WBC 7.6 RBC 4.90 Hgb 15.5 Hct 44.6 MCV 91.0 MCH 31.6 MCHC 34.8 RDW Std Deviation 41.4 RDW Coeff of Rose 12.5 Plt Count 248 MPV 9.0 Immature Gran % (Auto) 0.100 Neut % (Auto) 67.7 Lymph % (Auto) 21.6 [place] % (Auto) 7.7 Eos % (Auto) 2.2 Baso % (Auto) 0.7 Absolute Neuts (auto) 5.2 Absolute Lymphs (auto) 1.65 Nucleated RBC % 0 Sodium 138 Potassium 3.9 Chloride 103 Carbon Dioxide 29.0 Anion Gap 6 BUN 14 Creatinine 1.38 H Estim Creat Clear Calc 60.25 Est GFR (MDRD) Af Amer 68 Est GFR (MDRD) Non-Af 56 L BUN/Creatinine Ratio 10.1 Glucose 140 H Calcium 9.1 Troponin I High Sens 9 EKG Initial EKG: Attestation: I personally reviewed and interpreted this EKG as follows: Comments: Sinus rhythm with a ventricular rate of 84 bpm with no acute ST segment changes Discharge Plan Triage Chief Complaint: General Illness ED Provider: Samreen Babcock Dx/Rx/DC Orders Clinical Impression: Viral URI, Contact dermatitis, Fatigue Instructions: ED Contact Dermatitis, ED URI, Viral, No Abx (Adult) Prescriptions: New hydrocortisone 2.5 % cream 1 applic topical BID 10 Days Qty: 20 RF: 0 No Action lisinopril 10 MG tablet 40 mg PO DAILY RF: 0 albuterol sulfate [Ventolin HFA] 1 INHALER inhaler 1 puff inhalation Q4H PRN PRN (Reason: Dyspnea) RF: 0 escitalopram oxalate 10 MG tablet 10 mg PO DAILY RF: 0 hydrochlorothiazide 25 MG tablet 12.5 mg PO DAILY RF: 0 loratadine 10 MG tablet 10 mg PO DAILY RF: 0 albuterol sulfate 2.5 MG/3 ML solution for nebulization 2.5 mg inhalation Q4H PRN Qty: 25 RF: 0 vitamin E 200 UNIT capsule 200 unit PO DAILY RF: 0 ascorbic acid (vitamin C) 500 MG capsule 500 mg PO DAILY RF: 0 Cholecalciferol (Vitamin D3) [Vitamin D3] 5,000 UNIT capsule 5,000 unit PO DAILY RF: 0 felodipine 5 mg tablet extended release 24 hr 5 mg PO DAILY RF: 0 fluticasone propion-salmeterol [Wixela Inhub] 100-50 mcg/dose blister with device 1 inh INHALATION DAILY RF: 0 prednisone 10 mg tablet See Taper mg PO DAILY RF: 0 Primary Care Provider: Mervat Avina Referrals: Mervat Avina MD [Primary Care Provider] - 5-7 Days Disposition Disposition: Home, Self Care
[2021-05-05 06:20] LABS: Absolute Lymphocyte Count 1.65 X10^3/uL (0.83-4.51); Absolute Neutrophil Count 5.2 X10^3/uL (2.0-7.7); Basophil# 0.05 X10^3/uL; Basophil% 0.7 % (0-1); Eosinophil# 0.17 X10^3/uL; Eosinophils% 2.2 % (0-5); Hematocrit 44.6 % (40-54); Hemoglobin 15.5 g/dL (13.0-16.5); Lymphocyte # 1.65 X10^3/ul (0.83-4.51); Lymphocyte % 21.6 % (19-41); Mean Corp Hgb Conc 34.8 g/dL (32-36); Mean Corpuscular Hgb 31.6 pg (27.0-32.0); Monocyte# 0.59 X10^3/uL; Monocyte% 7.7 % (0-10); NRBC Flagged by Analyzer 0 % (0-5); Neutrophil # 5.17 X10^3/uL (2.7-7.7); Neutrophil % 67.7 % (47-70); Platelet Count 248 K/mm3 (150-450); RBC Distribution Width CV 12.5 % (11.6-14.6); RBC Distribution Width SD 41.4 fl (35.1-43.9); White Blood Count 7.6 K/mm3 (4.4-11.0)
[2021-05-05 06:37] VITALS: BP 119/97; PULSE 91; RESP 15; TEMP 36.6; O2SAT 95
[2021-05-05 06:40] LABS: Anion Gap 6 (5-15); BUN 14 mg/dL (7-18); BUN/Creat Ratio 10.1 RATIO (10-20); Calcium,Total 9.1 mg/dL (8.5-10.1); Chloride 103 mmol/L (98-107); Creatinine, Serum 1.38 mg/dL (0.70-1.30); EST Glomerular Filtration Rate 56 mL/min (>60); Est Glom Filt Rate - Afr Amer 68 mL/min (>60); Estimated Creatinine Clearance 60.25 ml/min; Glucose 140 mg/dL (74-106); Potassium 3.9 mmol/L (3.5-5.1); Sodium Level 138 mmol/L (136-145); Troponin-I HS 9 pg/mL (3.0-78.0)
[2021-05-05 07:40] VITALS: BP 179/87; PULSE 88; RESP 18; O2SAT 98
== END 2021-05-05 07:43 | disposition home or self-care (01) ==
PROVIDERS: Emergency Provider Emergency Medicine; PCP Internal Medicine
DX: J06.9 Acute upper respiratory infection, unspecified (principal); L25.9 Unspecified contact dermatitis, unspecified cause; R53.83 Other fatigue; I10 Essential (primary) hypertension; J45.909 Unspecified asthma, uncomplicated; Z79.51 Long term (current) use of inhaled steroids; Z79.899 Other long term (current) drug therapy; Z87.891 Personal history of nicotine dependence
CPT/HCPCS: 80048; 84484; 85025; 87426; 93005; 99282; A4216

== ENCOUNTER 2021-08-14 23:25 | Emergency (ER) | payer MEDICARE, SELFPAY ==
[2021-08-14 23:26] VITALS: BP 172/97; PULSE 83; TEMP 36.8; O2SAT 98; BMI 38.0
--- NOTE | 2021-08-14 23:36 | RAD_ITS ---
STUDY: X-RAY - LEFT KNEE REASON FOR EXAM: Male, 61 years old. L KNEE PAIN TECHNIQUE: Full view(s) of the knee. COMPARISON: None. FINDINGS: Normal visualized distal femur. Normal visualized proximal tibia and fibula. Normal proximal tibiofibular articulation. Normal medial femorotibial compartment. Normal lateral femorotibial compartment. Normal patellofemoral articulation. [place] view shows minimal ridging along the anterior surface of the patella, indicating patellar teeth/patellar degenerative change. Soft tissue prominence medial to the knee. Minimal suprapatellar knee effusion is suspected. RAD/Knee 4 or More Views IMPRESSION: Minimal patellar degenerative change. No acute fracture, dislocation or joint space narrowing identified. Electronically Signed: Fab Mahmood MD at 0:05 EDT ,
--- NOTE | 2021-08-15 00:30 | EDS_ITS ---
HPI History of Present Illness Chief Complaint: Lower Extremity Injury Narrative Narrative: Patient is a 61-year-old male who states that he has noticed pain in his left knee over the past 4 to 7 days. He states that there was no direct trauma but he does do a lot of climbing and lifting and bending at work. He states he noticed increased pain when he has to flex or extend the knee but it seems to improve while he is sitting at rest. He denies any chest pain or shortness of breath any recent travel or surgery or history of DVT/PE. He states today after he was getting gas and walking back to his car he had increased pain and therefore presents for evaluation. [facility] Medical History (Updated 08/15/21 @ 00:[address] Jem Restrepo, ) Anxiety Asthma Depression GERD (gastroesophageal reflux disease) HTN (hypertension) Home Medications albuterol sulfate [Ventolin Hfa] 1 puff INHALATION Q4H PRN PRN 05/05/13 [History Last Taken Unknown] lisinopril 40 mg PO DAILY 05/05/13 [History Last Taken Unknown] escitalopram oxalate 10 mg PO DAILY 07/23/15 [History Last Taken Unknown] albuterol sulfate 2.5 mg INHALATION Q4H PRN #25 vial 08/11/19 [Rx Last Taken Unknown] hydrochlorothiazide 12.5 mg PO DAILY 08/11/19 [History Last Taken Unknown] loratadine 10 mg PO DAILY 08/11/19 [History Last Taken Unknown] Cholecalciferol (Vitamin D3) [Vitamin D3] 5,000 unit PO DAILY 06/06/20 [History Last Taken Unknown] ascorbic acid (vitamin C) 500 mg PO DAILY 06/06/20 [History Last Taken Unknown] vitamin E 200 unit PO DAILY 06/06/20 [History Last Taken Unknown] felodipine 5 mg PO DAILY 02/09/21 [History Last Taken Unknown] fluticasone propion-salmeterol [Wixela Inhub] 1 inh INHALATION DAILY 02/09/21 [History Last Taken Unknown] hydrocortisone 1 applic TOPICAL BID 10 Days #20 g 05/05/21 [Rx Last Taken Unknown] Allergy/AdvReac Type Severity Reaction Status Date / Time meloxicam Allergy Anaphylaxis Verified 05/05/21 05:38 citalopram AdvReac Vomiting Verified 05/05/21 05:38 verapamil AdvReac Nausea Verified 05/05/21 05:38 Surgical History History of total right hip replacement Social History Smoking Status: Former smoker ROS ROS ED Constitutional Constitutional ED: Denies chills or fever(s) ENT ENT ED: Denies sore throat Cardiovascular Cardiovascular: Denies chest pain Respiratory/Chest Respiratory/Chest: Denies cough or dyspnea Gastrointestinal Gastrointestinal: Denies abdominal pain, diarrhea, nausea or vomiting Genitourinary Genitourinary ED: Denies dysuria Musculoskeletal Musculoskeletal: Reports arthralgias and other Details: Positive left knee pain ; Denies myalgias Integumentary Denies Abrasions or rash Neurologic Neurologic: Denies headache(s) or paresthesias Hematologic/Lymphatic Hematologic/Lymphatic: Denies easy bleeding or easy bruising EXAM Physical Exam Const Vital Signs: 08/14/21 23:26 Temperature 98.3 F Temperature Source Oral Pulse Rate 83 Blood Pressure 172/97 H Blood Pressure Mean 122 Pulse Ox 98 Oxygen Delivery Method Room Air Positive well nourished and well developed General Appearance ED: well developed Eyes PERRL and EOMs intact bilaterally Neck supple Resp normal respiratory effort and clear to auscultation bilaterally Cardio regular rate and regular rhythm Extremity Extremity Narrative: Left lower extremity is neurovascularly intact. There is no obvious bony deformity or joint effusion. No peripheral edema. Negative Homans' sign bilaterally. No overlying soft tissue changes to suggest trauma or infection. There is pain on palpation along the medial aspect of the left knee that worsens with valgus stress test but no obvious ligamentous laxity noted Neuro oriented x3 and CN's II-XII intact bilaterally Sensorium / Orientation: alert Psych mental status grossly normal Skin no rashes or lesions noted MDM MDM MDM Narrative Medical decision making narrative: Patient presented to the ER with knee pain with no report or signs of trauma. He had no signs of infection on exam either and no obvious changes to suggest DVT. I elected perform an x-ray at this time because of his pain and it showed no acute finding. By exam he has increased pain with motion of the knee joint but stable ligaments. Therefore I feel he most likely has a grade 1 sprain. Patient will be treated symptomatically and can follow-up with his family doctor and discuss need for possible orthopedic referral if symptoms persist. However at this time as he does not have any type of fracture or dislocation or signs of infection or concern for DVT he is safe for discharge. Radiography Diagnostic Testing: Clinical Impression(s) from Imaging Studies Knee X-Ray 08/14/21 23:36 IMPRESSION: Minimal patellar degenerative change. No acute fracture, dislocation or joint space narrowing identified. Electronically Signed: Fab Mahmood MD at 0:05 EDT , X-ray as interpreted by the emergency medicine physician shows mild degenerative changes without acute fracture or dislocation Discharge Plan Triage Chief Complaint: Lower Extremity Injury ED Provider: Jem Restrepo Dx/Rx/DC Orders Clinical Impression: Left knee sprain Instructions: ED Knee Sprain Prescriptions: No Action lisinopril 10 MG tablet 40 mg PO DAILY RF: 0 albuterol sulfate [Ventolin HFA] 1 INHALER inhaler 1 puff inhalation Q4H PRN PRN (Reason: Dyspnea) RF: 0 escitalopram oxalate 10 MG tablet 10 mg PO DAILY RF: 0 hydrochlorothiazide 25 MG tablet 12.5 mg PO DAILY RF: 0 loratadine 10 MG tablet 10 mg PO DAILY RF: 0 albuterol sulfate 2.5 MG/3 ML solution for nebulization 2.5 mg inhalation Q4H PRN Qty: 25 RF: 0 vitamin E 200 UNIT capsule 200 unit PO DAILY RF: 0 ascorbic acid (vitamin C) 500 MG capsule 500 mg PO DAILY RF: 0 Cholecalciferol (Vitamin D3) [Vitamin D3] 5,000 UNIT capsule 5,000 unit PO DAILY RF: 0 felodipine 5 mg tablet extended release 24 hr 5 mg PO DAILY RF: 0 fluticasone propion-salmeterol [Wixela Inhub] 100-50 mcg/dose blister with device 1 inh INHALATION DAILY RF: 0 hydrocortisone 2.5 % cream 1 applic topical BID 10 Days Qty: 20 RF: 0 Stand Alone Forms: Work Status Form Primary Care Provider: Mervat Avina Referrals: Mervat Avina MD [Primary Care Provider] - Activity Restrictions/Additional Instructions: Please take 3 Motrin at a time at breakfast lunch and dinner for the next 5 days whether you are hurting or not to help stay ahead of the pain and wear your [place] wrap or knee brace for improved stabilization Disposition Disposition: Home, Self Care Discharge Date/Time: 08/15/21 00:39
== END 2021-08-15 00:39 | disposition home or self-care (01) ==
PROVIDERS: Emergency Provider Emergency Medicine; PCP Internal Medicine; Visit Provider Emergency Medicine
DX: S83.92XA Sprain of unspecified site of left knee, initial encounter (principal); X58.XXXA Exposure to other specified factors, initial encounter; I10 Essential (primary) hypertension; Z79.899 Other long term (current) drug therapy; Z87.891 Personal history of nicotine dependence
CPT/HCPCS: 73564; 99282

== ENCOUNTER → 2022-05-24 | Outpatient (CLI) | payer MEDICARE, SELFPAY ==
--- NOTE | 2022-05-24 16:20 | RAD_ITS ---
EXAM: XR CERVICAL SPINE, 4 OR 5 VIEWS CLINICAL INDICATION: CERVICAL RADICULOPATHY TECHNIQUE: Frontal, lateral and bilateral oblique views of the cervical spine. This report was created using [employer] report generation technology. COMPARISON: None. FINDINGS: VERTEBRAE: Up to moderate spondylotic changes of the cervical spine. No acute or healing fracture or malalignment. Preservation of the normal cervical lordosis. No significant facet arthropathy. No unusual lytic or sclerotic lesions of bone. DISC SPACES: Increasing narrowing of the right and left neural foramen at the mid to lower levels. SOFT TISSUES: Nuchal ligamentous calcification or ossification posteriorly at the C3-4 bilaterally. VASCULATURE: Atherosclerotic focal calcification involving the left ICA region. LUNG APICES: Clear. RAD/Cerv Spine 4 or 5 Views IMPRESSION: Degenerative changes at multiple levels without acute or healing fracture or malalignment. If still clinically concerned for radiculopathy, recommend MRI. Electronically Signed: Jem Ness MD at 3:51 EST ,
== END | disposition home or self-care (01) ==
LOC: RAD 16:18
PROVIDERS: PCP Internal Medicine; Referring Provider Chiropractor; Visit Provider Chiropractor
DX: M54.12 Radiculopathy, cervical region (principal)
CPT/HCPCS: 72050

== ENCOUNTER 2022-11-27 21:22 | Emergency (ER) | payer MEDICARE, SELFPAY ==
[2022-11-27 21:23] VITALS: BP 206/101; PULSE 85; RESP 16; TEMP 36.7; O2SAT 97; BMI 39.1
--- NOTE | 2022-11-27 22:25 | RAD_ITS ---
STUDY: X-RAY - UNILATERAL RIBS ( RIGHT ) WITH CHEST REASON FOR EXAM: Male, 62 years old. pain, cugh TECHNIQUE - RIBS: 4 view(s) of the ribs. TECHNIQUE - CHEST: Single PA view of the chest. COMPARISON: 02/11/2021 FINDINGS - RIBS: Normal visualized ribs without a demonstrated fracture. FINDINGS - CHEST: The lungs are clear and expanded. There is no demonstrated pleural abnormality. Normal size heart. Normal mediastinum and miles. Normal visualized pulmonary arteries. Normal visualized aortic arch and descending thoracic aorta. Normal visualized thoracic spine. Normal visualized ribs, clavicles, and shoulders. There is no demonstrated abnormality of the visualized soft tissue structures of the upper abdomen. RAD/Ribs Uni Min 3V w/PA Chest IMPRESSION: RIBS: Normal x-ray examination of the ribs. CHEST: Normal x-ray examination of the chest. Electronically Signed: Gonzalo Tapia MD at 23:02 EDT ,
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
[2022-11-27] MEDS: Ketorolac 60 MG/2 ML Vial IM (23:25)
== END 2022-11-27 23:44 | disposition home or self-care (01) ==
PROVIDERS: Emergency Provider Emergency Medicine; PCP Internal Medicine; Visit Provider Emergency Medicine
DX: S29.011A Strain of muscle and tendon of front wall of thorax, initial encounter (principal); R05.9 Cough, unspecified; M54.6 Pain in thoracic spine; J45.909 Unspecified asthma, uncomplicated; Z79.899 Other long term (current) drug therapy; Z87.891 Personal history of nicotine dependence; X58.XXXA Exposure to other specified factors, initial encounter
CPT/HCPCS: 71101; 96372; 99282

== ENCOUNTER 2023-01-15 12:32 | Emergency (ER) | payer SELFPAY ==
[2023-01-15 12:33] VITALS: BP 181/112; PULSE 94; RESP 18; TEMP 36.1; O2SAT 96; BMI 37.9
--- NOTE | 2023-01-15 13:29 | EKG12_ITS ---
Test Reason : Blood Pressure : / mmHG Vent. Rate : 071 BPM Atrial Rate : 071 BPM P-R Int : 172 ms QRS Dur : 094 ms QT Int : 400 ms P-R-T Axes : 063 -02 061 degrees QTc Int : 434 ms Normal sinus rhythm Normal ECG Confirmed by BREANA CARABALLO, MISSY ([id number]), purchase request editor AMILCAR CANCHOLA ([id number]) on 01/19/2023 11:31:32 AM Referred By: Confirmed By:MISSY TOUSSAINT MD
--- NOTE | 2023-01-15 13:42 | EX.ED.DYSGE1 ---
HPI History of Present Illness Chief Complaint: General Illness Narrative Narrative: 62-year-old male presenting with complaints of feeling generally rundown. He has not checked his self for fever because he does not own a thermometer but states he feels feverish. He states when he touches his forehead it feels hot. He does complain of body aches and a sensation of chills. He states that yesterday when he was in his yard mowing the grass he started to feel palpitations like his heart was skipping beats but after he drank water he felt better. He did not have any chest pain but he did feel little short of breath. Patient states he is also been a little bit depressed but no homicidal or suicidal ideation. He states that he has a lot of social stressors. He states he also woke up this morning feeling numb all over. He is unsure why he feels this way. He reports he does have sleep apnea and has had it for years but he cannot sleep with the mask on his face. [facility] Medical History Anxiety Asthma Degenerative disc disease Depression GERD (gastroesophageal reflux disease) HTN (hypertension) Home Medications albuterol sulfate 90 mcg/actuation aerosol inhaler (Ventolin HFA) 1 puff inhalation Q4H PRN PRN Dyspnea 05/05/13 [History Last Taken Unknown] lisinopril 10 mg tablet 40 mg PO DAILY 05/05/13 [History Last Taken Unknown] escitalopram oxalate 10 mg tablet 10 mg PO DAILY 07/23/15 [History Last Taken Unknown] albuterol sulfate 2.5 mg/3 mL (0.083 %) solution for nebulization 2.5 mg (3 mL) inhalation Q4H PRN #25 vials 08/11/19 [Rx Last Taken Unknown] hydrochlorothiazide 25 mg tablet 12.5 mg PO DAILY 08/11/19 [History Last Taken Unknown] loratadine 10 mg tablet 10 mg PO DAILY 08/11/19 [History Last Taken Unknown] Cholecalciferol (Vitamin D3) [Vitamin D3] 5,000 unit PO DAILY 06/06/20 [History Last Taken Unknown] ascorbic acid (vitamin C) 500 mg capsule 500 mg PO DAILY 06/06/20 [History Last Taken Unknown] vitamin E 200 unit capsule 200 unit PO DAILY 06/06/20 [History Last Taken Unknown] felodipine 5 mg tablet,extended release 24 hr 5 mg PO DAILY 02/09/21 [History Last Taken Unknown] fluticasone 100 mcg-salmeterol 50 mcg/dose blistr powdr for inhalation (Patrick Inhub) 1 inh inhalation DAILY 02/09/21 [History Last Taken Unknown] hydrocortisone 2.5 % topical cream 1 applic topical BID 10 days #20 grams 05/05/21 [Rx Last Taken Unknown] tramadol 50 mg tablet 50 mg PO Q6H PRN pain 3 days #12 tabs 11/27/22 [Rx Last Taken Unknown] Allergy/AdvReac Type Severity Reaction Status Date / Time meloxicam Allergy Anaphylaxis Verified 01/15/23 12:36 citalopram AdvReac Vomiting Verified 01/15/23 12:36 verapamil AdvReac Nausea Verified 01/15/23 12:36 Surgical History History of total right hip replacement Social History Smoking Status: Former smoker ROS ROS ED Review of Systems ROS Unobtainable: Denies due to encephalopathy Constitutional Constitutional ED: Reports chills and subjective Eyes Eyes: Denies change in vision ENT ENT ED: Denies rhinorrhea Cardiovascular Cardiovascular: Reports palpitations Respiratory/Chest Respiratory/Chest: Reports dyspnea; Denies cough Gastrointestinal Gastrointestinal: Denies abdominal pain, nausea or vomiting Genitourinary Genitourinary ED: Denies dysuria or hematuria Musculoskeletal Musculoskeletal: Reports myalgias Integumentary Denies abscess or Abrasions Neurologic Neurologic: Denies headache(s) or paresthesias Psychiatric Psychiatric: Reports depression; Denies suicidal ideation or suicidal thoughts EXAM Physical Exam Const Vital Signs: 01/15/23 12:33 01/15/23 13:43 01/15/23 15:00 Temperature 97 F L Temperature Source Temporal Pulse Rate 94 70 Respiratory Rate 18 16 Respiratory Effort Normal Respiratory Pattern Normal Blood Pressure 181/112 H 143/67 H Blood Pressure Mean 135 92 Pulse Ox 96 96 Oxygen Delivery Method Room Air Room Air Positive well nourished General Appearance ED: NAD; Negative for pallor HEENT Reports moist mucous membranes Eyes PERRL and EOMs intact bilaterally Chest Wall inspection of chest normal Resp normal respiratory effort and clear to auscultation bilaterally Auscultation: Negative for rales, rhonchi or wheezes Cardio regular rate and regular rhythm GI normal to inspection, nondistended, normoactive bowel sounds Neuro oriented x3 and CN's II-XII intact bilaterally Sensorium / Orientation: alert Motor Exam: strength 5/5 throughout Psych mental status grossly normal Skin no rashes or lesions noted General Skin Exam: Negative for jaundice or pallor MDM MDM MDM Narrative Medical decision making narrative: Patient presenting with multiple vague complaints. He said he had palpitations yesterday so I will check an EKG and high-sensitivity troponin. Chest x-ray to rule out pneumonia. CBC to assess white blood cell count, hemoglobin, platelets. BMP to assess renal function electrolytes. I will test him for COVID given his sensation of fever and chills. Patient reported to me that he broke his toe last week and started had this evaluated and was seen with orthopedics. He states he is a little bit concerned because his brother had an ankle fracture and of a blood clot. I counseled him that we do not have ultrasound here today but I can give him a follow-up ultrasound for tomorrow to do as an outpatient he was amenable to this. I do not feel that he has a PE or DVT based on his exam. Blood work all unremarkable. EKG sinus rhythm at 61 beats without sign of ischemic change or ectopy. High-sensitivity troponin 9. Chest x-ray interpretation shows no acute process. Rapid COVID and flu are negative. Patient counseled his work-up is normal and he stable for discharge home. We did discuss him following up with his primary care physician for his mental health evaluation. Do not have a social work case manager today. Patient is amenable to this. Patient discharged home in stable condition. Impression: 1. Fatigue 2. Chills 3. Palpitations Lab Data Attestation: I reviewed the patient's lab results. Labs: Laboratory Results - last 24 hr 01/15/23 13:51 WBC 4.8 RBC 5.24 Hgb 16.6 H Hct 47.7 MCV 91.0 MCH 31.7 MCHC 34.8 RDW Std Deviation 40.8 RDW Coeff of Rose 12.4 Plt Count 265 MPV 8.9 Immature Gran % (Auto) 0.200 Neut % (Auto) 63.7 Lymph % (Auto) 24.8 [place] % (Auto) 8.8 Eos % (Auto) 1.9 Baso % (Auto) 0.6 Absolute Neuts (auto) 3.0 Absolute Lymphs (auto) 1.18 Nucleated RBC % 0 Sodium 137 Potassium 3.4 L Chloride 102 Carbon Dioxide 28.0 Anion Gap 7 BUN 13 Creatinine 1.11 Estim Creat Clear Calc 75.38 Est GFR (MDRD) Af Amer 87 Est GFR (MDRD) Non-Af 72 BUN/Creatinine Ratio 11.7 Glucose 134 H Calcium 9.3 Total Bilirubin 0.80 AST 42 H ALT 83 H Alkaline Phosphatase 63 Troponin I High Sens 9 Total Protein 7.6 Albumin 4.1 Globulin 3.5 Albumin/Globulin Ratio 1.2 Radiography Diagnostic Testing: Clinical Impression(s) from Imaging Studies Chest X-Ray 01/15/23 14:00 IMPRESSION: No radiographic evidence of acute cardiopulmonary disease. Electronically Signed: Talia Simental MD at 14:24 EDT Reading Location ID and State: [facility] / [place] Tel , Service support , Discharge Plan Triage Chief Complaint: General Illness ED Provider: Royce Wood Dx/Rx/DC Orders Prescriptions: No Action lisinopril 10 MG tablet 40 mg PO DAILY Hold Instructions: Ordered albuterol sulfate [Ventolin HFA] 1 INHALER inhaler 1 puff inhalation Q4H PRN PRN (Reason: Dyspnea) escitalopram oxalate 10 MG tablet 10 mg PO DAILY hydrochlorothiazide 25 MG tablet 12.5 mg PO DAILY loratadine 10 MG tablet 10 mg PO DAILY albuterol sulfate 2.5 MG/3 ML solution for nebulization 2.5 mg inhalation Q4H PRN Qty: 25 0RF Rx Instructions: Use q4 hours and PRN for wheezing vitamin E 200 UNIT capsule 200 unit PO DAILY ascorbic acid (vitamin C) 500 MG capsule 500 mg PO DAILY Cholecalciferol (Vitamin D3) [Vitamin D3] 5,000 UNIT capsule 5,000 unit PO DAILY felodipine 5 mg tablet extended release 24 hr 5 mg PO DAILY Hold Instructions: Ordered Patient Comments: TAKE 1 TABLET BY MOUTH ONCE DAILY fluticasone propion-salmeterol [Wixela Inhub] 100-50 mcg/dose blister with device 1 inh INHALATION DAILY Hold Instructions: MD Ordered hydrocortisone 2.5 % cream 1 applic topical BID 10 Days Qty: 20 0RF tramadol 50 mg tablet 50 mg PO Q6H PRN (Reason: pain) 3 Days Qty: 12 0RF Other Ambulatory Orders: Venous Duplex US, Unilateral (Stat) Facility: [facility] - Location: [facility] Ordered By: Dr. Royce Wood Primary Care Provider: Mervat Avina Referrals: Mervat Avina MD [Primary Care Provider] - Disposition Disposition: Home, Self Care
[2023-01-15] MEDS: 0.9% Normal Saline 1,000 ML 1000 ML IV (13:50)
--- NOTE | 2023-01-15 14:00 | RAD_ITS ---
INDICATION: weakness EXAMINATION/TECHNIQUE: X-RAY - XR Chest 1 View COMPARISON: Prior study dated: November 27, 2022 FINDINGS: LINES/DEVICES: None. LUNGS: No new consolidation, edema or effusion. There are a few stable left basilar streaky opacities. No pneumothorax. MEDIASTINUM AND CARDIOVASCULAR STRUCTURES: Cardiac silhouette not enlarged. Central airways and mediastinal contour are unremarkable. BONES AND SOFT TISSUES: Unremarkable. RAD/Chest 1 View (Portable) IMPRESSION: No radiographic evidence of acute cardiopulmonary disease. Electronically Signed: Talia Simental MD at 14:24 EDT ,
[2023-01-15 14:01] LABS: Absolute Lymphocyte Count 1.18 X10^3/uL (0.83-4.51); Basophil# 0.03 X10^3/uL; Basophil% 0.6 % (0-1); Eosinophil# 0.09 X10^3/uL; Eosinophils% 1.9 % (0-5); Hematocrit 47.7 % (40-54); Hemoglobin 16.6 g/dL (13.0-16.5); Lymphocyte # 1.18 X10^3/ul (0.83-4.51); Lymphocyte % 24.8 % (19-41); Mean Corp Hgb Conc 34.8 g/dL (32-36); Mean Corpuscular Hgb 31.7 pg (27.0-32.0); Mean Platelet Vol. 8.9 fl (6.2-12.0); Monocyte# 0.42 X10^3/uL; Monocyte% 8.8 % (0-10); NRBC Flagged by Analyzer 0 % (0-5); Neutrophil # 3.03 X10^3/uL (2.7-7.7); Neutrophil % 63.7 % (47-70); Platelet Count 265 K/mm3 (150-450); RBC Distribution Width CV 12.4 % (11.6-14.6); RBC Distribution Width SD 40.8 fl (35.1-43.9); Red Blood Count 5.24 M/mm3 (4.6-6.2); White Blood Count 4.8 K/mm3 (4.4-11.0)
[2023-01-15 14:22] LABS: ALB/GLOB Ratio 1.2 RATIO (0.9-2.4); AST(SGOT) 42 U/L (15-37); Alanine Aminotransfer ALT/SGPT 83 U/L (16-61); Albumin, Serum 4.1 g/dL (3.2-5.0); Alkaline Phosphatase 63 U/L (45-117); Anion Gap 7 (5-15); BUN 13 mg/dL (7-18); BUN/Creat Ratio 11.7 RATIO (10-20); Calcium,Total 9.3 mg/dL (8.5-10.1); Chloride 102 mmol/L (98-107); Creatinine, Serum 1.11 mg/dL (0.70-1.30); EST Glomerular Filtration Rate 72 mL/min (>60); Est Glom Filt Rate - Afr Amer 87 mL/min (>60); Estimated Creatinine Clearance 75.38 ml/min; Globulin 3.5 g/dL (2.2-4.2); Glucose 134 mg/dL (74-106); Potassium 3.4 mmol/L (3.5-5.1); Protein, Total 7.6 g/dL (6.4-8.2); Sodium Level 137 mmol/L (136-145); Troponin-I HS 9 pg/mL (3.0-78.0)
[2023-01-15 15:00] VITALS: BP 143/67; PULSE 70; RESP 16; O2SAT 96
== END 2023-01-15 15:58 | disposition home or self-care (01) ==
PROVIDERS: Emergency Provider Student in an Organized Health Care Education/Training Program; PCP Internal Medicine; Visit Provider Student in an Organized Health Care Education/Training Program
DX: R53.83 Other fatigue (principal); R68.83 Chills (without fever); R00.2 Palpitations; G47.30 Sleep apnea, unspecified; Z87.891 Personal history of nicotine dependence
CPT/HCPCS: 71045; 80053; 84484; 85025; 87428; 93005; 96360; 99283; J7030; A4216

== ENCOUNTER → 2023-01-16 | Outpatient (CLI) | payer OTHER, SELFPAY ==
--- NOTE | 2023-01-16 13:08 | VDLE_ITS ---
Reason For Study: Left leg pain RIGHT LEFT CFV is compressible, spontaneous, phasic, GSV is normal. competent and demonstrates normal CFV is compressible, spontaneous, phasic, augmentation. competent, and demonstrates normal Procedure augmentation. This is a venous duplex using B-mode, color FV is compressible, spontaneous, phasic, flow and spectral Doppler. competent and demonstrates normal Exam performed in department. augmentation. A preliminary report was called and/or faxed POP V is compressible, spontaneous, phasic, to Ortho: Dr. Bynum, PCP: Dr. Avina. competent and demonstrates normal augmentation. T/P Trunk is compressible. PTV is compressible. LT PerV is compressible. VL/Venous Duplex US, Unilateral Interpretation Summary There is no evidence of left lower extremity deep vein thrombosis. Left great s aphenous vein appears patent and compressible segmentally. Normal flow patterns right common femoral vein Ordering Physician: Royce Wood Referring Physician: Mervat Avina M.D. Performed By: Silvia Jackson RVT
== END | disposition home or self-care (01) ==
PROVIDERS: PCP Internal Medicine; Referring Provider Student in an Organized Health Care Education/Training Program; Visit Provider Student in an Organized Health Care Education/Training Program
DX: M79.605 Pain in left leg (principal)
CPT/HCPCS: 93971

== ENCOUNTER 2023-02-17 03:55 | Emergency (ER) | payer SELFPAY ==
[2023-02-17 03:57] VITALS: BP 216/95; PULSE 96; RESP 20; TEMP 36.5; O2SAT 95; BMI 37.8
--- NOTE | 2023-02-17 04:13 | EKG12_ITS ---
Test Reason : DYSRHYTHMIA Blood Pressure : / mmHG Vent. Rate : 083 BPM Atrial Rate : 083 BPM P-R Int : 150 ms QRS Dur : 088 ms QT Int : 374 ms P-R-T Axes : 063 004 038 degrees QTc Int : 439 ms Normal sinus rhythm Normal ECG Confirmed by BREANA CARABALLO, MISSY ([id number]), editor producer DAFNE BAXTER ([id number]) on 02/20/2023 12:17:42 PM Referred By: GERARD Confirmed By:MISSY TOUSSAINT MD
--- NOTE | 2023-02-17 04:14 | ED.VIS.DYS ---
HPI History of Present Illness Chief Complaint: Shortness of Breath Informant: patient Onset/Context/Timing Onset: Today and Hours Context: gradual Timing: Continuous Current Severity: Mild Maximum Severity: Mild Worsened by: Coughing Relieved by: Nothing Associated Symptoms cough and white sputum; Negative for fever or sore throat Chest Pain: Positive for None Narrative Narrative: 62-year old male history of anxiety, degenerative disc disease, hypertension. States he was diagnosed with pneumonia at the local [facility] by nurse practitioner on Sunday. He was started on antibiotic Augmentin. Placed on prednisone for wheezing. States he thought he was doing well. And about half an hour ago he woke up short of breath. Denies any chest pain. No leg pain or swelling. No history of DVT or PE. Denies any prior cardiac history. Denies recent exertional chest pain PE Risk Factors: Negative for Cancer, OCP + Smoking + > 35, Prior DVT or PE, Recent immobilization, Recent surgery or Recent travel Prior similar symptoms: Yes Recent Illness/Hospitalization: No PFSH PFSH Medical History Anxiety Asthma Degenerative disc disease Depression GERD (gastroesophageal reflux disease) HTN (hypertension) Home Medications albuterol sulfate 90 mcg/actuation aerosol inhaler (Ventolin HFA) 1 puff inhalation Q4H PRN PRN Dyspnea 05/05/13 [History Last Taken Unknown] lisinopril 10 mg tablet 40 mg PO DAILY 05/05/13 [History Last Taken Unknown] escitalopram oxalate 10 mg tablet 10 mg PO DAILY 07/23/15 [History Last Taken Unknown] albuterol sulfate 2.5 mg/3 mL (0.083 %) solution for nebulization 2.5 mg (3 mL) inhalation Q4H PRN #25 vials 08/11/19 [Rx Last Taken Unknown] hydrochlorothiazide 25 mg tablet 12.5 mg PO DAILY 08/11/19 [History Last Taken Unknown] loratadine 10 mg tablet 10 mg PO DAILY 08/11/19 [History Last Taken Unknown] Cholecalciferol (Vitamin D3) [Vitamin D3] 5,000 unit PO DAILY 06/06/20 [History Last Taken Unknown] ascorbic acid (vitamin C) 500 mg capsule 500 mg PO DAILY 06/06/20 [History Last Taken Unknown] vitamin E 200 unit capsule 200 unit PO DAILY 06/06/20 [History Last Taken Unknown] amoxicillin 875 mg-potassium clavulanate 125 mg tablet 1 tab PO Q12H 02/17/23 [History Last Taken Unknown] azithromycin 250 mg tablet 250 mg PO DAILY 02/17/23 [History Last Taken Unknown] ferrous sulfate 325 mg (65 mg iron) tablet (Feosol) 325 mg PO DAILY 02/17/23 [History Last Taken Unknown] fluticasone 100 mcg-salmeterol 50 mcg/dose blistr powdr for inhalation (Advair Diskus) 1 inh inhalation DAILY 02/17/23 [History Last Taken Unknown] omega 8-nqe-ziw-fish oil 1,200 mg (144 mg-216 mg) capsule (Fish Oil) 1 cap PO DAILY 02/17/23 [History Last Taken Unknown] Allergy/AdvReac Type Severity Reaction Status Date / Time meloxicam Allergy Anaphylaxis Verified 02/17/23 03:56 citalopram AdvReac Vomiting Verified 02/17/23 03:56 verapamil AdvReac Nausea Verified 02/17/23 03:56 Surgical History History of total right hip replacement Social History Smoking Status: Former smoker ROS ROS ED ROS Narrative Of breath. Cough. Wheezing. Review of Systems ROS Unobtainable: Denies due to encephalopathy Constitutional Constitutional ED: Denies chills or fever(s) Eyes Eyes: Denies blurry vision ENT ENT ED: Denies ear pain Cardiovascular Cardiovascular: Denies chest pain Respiratory/Chest Respiratory/Chest: Reports cough, dyspnea and sputum Gastrointestinal Gastrointestinal: Denies abdominal pain, constipation, diarrhea, melena, nausea or vomiting Genitourinary Genitourinary ED: Denies dysuria or hematuria Musculoskeletal Musculoskeletal: Denies arthralgias Integumentary Denies abscess Neurologic Neurologic: Denies headache(s) Psychiatric Psychiatric: Denies anxiety or depression Endocrine Endocrinology: Denies cold intolerance Hematologic/Lymphatic Hematologic/Lymphatic: Denies easy bleeding or easy bruising Allergic/Immunologic Allergic/Immunologic ED: Denies mouth swelling or tongue swelling EXAM Physical Exam Narrative Exam Narrative: 62-year-old female. Vital signs stable afebrile. Initial blood pressure elevated 216/95. Pulse ox 95% on room air no signs hypoxia. No distress. H EENT exam unremarkable. Moist extremities. Neck nontender. No JVD. No lymphadenopathy. Lungs few scattered expiratory wheezes. No rales or rhonchi. Equal symmetrical. Heart regular rhythm rate in 90s no murmur. Chest were nontender. Abdomen soft nontender. Moving all 4 extremities. Nontender without edema. No cords. Neurologically is awake and alert with no focal motor deficits. Const Vital Signs: 02/17/23 03:57 02/17/23 04:05 02/17/23 04:34 Temperature 97.7 F L 97.7 F L Temperature Source Oral Temporal Pulse Rate 96 86 Respiratory Rate 20 H 18 Respiratory Effort Labored Respiratory Pattern Blood Pressure 216/95 H 216/95 H Blood Pressure Mean 135 135 Pulse Ox 95 95 Oxygen Delivery Method Room Air 02/17/23 04:36 02/17/23 04:21 02/17/23 05:00 Temperature 97.7 F L Temperature Source Temporal Pulse Rate 86 93 Respiratory Rate 22 H 19 H Respiratory Effort Respiratory Pattern Tachypnea Blood Pressure 194/106 H Blood Pressure Mean 135 Pulse Ox 93 Oxygen Delivery Method Room Air Positive well nourished and well developed; Negative for cachectic, contractures or unkempt General Appearance ED: well developed and NAD; Negative for unkempt, cachectic, contractures or pallor Nutritional Appearance: Negative for cachectic HEENT Reports moist mucous membranes; Denies dry mucous membranes atraumatic; Negative for trauma or tenderness Mouth ED: No dry mucous membranes Mouth: No dry mucous membranes Eyes PERRL and EOMs intact bilaterally General Eye ED: Negative for pale conjunctiva or scleral icterus Neck no lymphadenopathy, supple, no meningeal signs and no JVD General: Negative for tenderness Lymph Lymphatic: Negative for other Chest Wall Chest: Negative for other Resp normal respiratory effort and No clear to auscultation bilaterally Resp Narrative: Few scattered expiratory wheezes. No rales or rhonchi. Equal symmetrical. Prolonged expiratory phase. Auscultation: wheezes Cardio regular rate, regular rhythm, S1 normal heart sound and no murmurs Rate: Negative for bradycardia or tachycardic Rhythm: Negative for abnormal rhythm GI non-tender, non-distended and no masses Auscultation: normoactive bowel sounds Palpation: soft; Negative for tender or guarding Back/Spine no CVA tenderness and normal to inspection General Back: Negative for CVA tenderness Extremity normal to inspection General Extremety ED: Negative for edema or tenderness General Extremity: Negative for edema Neuro CN's II-XII intact bilaterally Sensorium / Orientation: alert, oriented to person, oriented to place and oriented to time; Negative for orientation impaired, confused, lethargic or stuporous Speech: speech normal Motor Exam: strength 5/5 throughout Psych mental status grossly normal Appearance: Negative for unkempt Attitude: No agitated Mood & Affect: Negative for depressed, anxious or tearful Thought Process: normal thought process Skin no wounds General Skin Exam: Negative for jaundice or pallor Lesions: no lesions Rashes: no rashes Trauma: Negative for abrasion or laceration MDM MDM MDM Narrative Medical decision making narrative: [id number] recently diagnosed with pneumonia earlier this week. Currently is along med and prednisone. Awoke tonight with shortness of breath. No DVT or PE history or risk factors. Clinically he is wheezing. He will undergo cardiac work-up. I do not think this is can end up being cardiac. It may be pulmonary in nature. We treated with aerosols and Solu-Medrol. Repeat exam patient is doing well at 5:05 AM. Wheezing is resolved. He was treated with aerosol treatments and has improved. Awaiting for his labs to be completed. Repeat exam at 5:22 AM I went over the patient's test results. He will be discharged home. Continue his current antibiotic Augmentin. Continue his prednisone. Uses inhaler as needed. History & Record Review Discussion w/independent historian: Patient Additional record(s) reviewed:: Prior inpatient record, Prior outpatient record, Prior ED visit and Prior labs Lab Data Attestation: I reviewed the patient's lab results. Lab results narrative: CBC is unremarkable. White count of 7. H&H of 15 and 43. Platelets 272. Chemistries are unremarkable gap of 7 normal BUN and creatinine. Glucose of 214. And his troponin is normal at 14. Chest x-ray is unremarkable. Labs: Laboratory Results - last 24 hr 02/17/23 04:35 WBC 7.6 RBC 4.81 Hgb 15.0 Hct 43.8 MCV 91.1 MCH 31.2 MCHC 34.2 RDW Std Deviation 40.4 RDW Coeff of Rose 12.1 Plt Count 272 MPV 9.0 Immature Gran % (Auto) 0.900 Neut % (Auto) 74.6 H Lymph % (Auto) 17.9 L Jenkins % (Auto) 5.8 Eos % (Auto) 0.3 Baso % (Auto) 0.5 Absolute Neuts (auto) 5.6 Absolute Lymphs (auto) 1.35 Nucleated RBC % 0 Sodium 138 Potassium 3.7 Chloride 103 Carbon Dioxide 28.0 Anion Gap 7 BUN 17 Creatinine 1.04 Estim Creat Clear Calc 80.45 Est GFR (MDRD) Af Amer 94 Est GFR (MDRD) Non-Af 77 BUN/Creatinine Ratio 16.3 Glucose 214 H Calcium 8.9 Troponin I High Sens 14 Radiography Chest X-Ray - ED: 1 View, Read by ED Physician, Lungs, Mediastinum, Bony Structures, No Acute Disease and Chronic Changes Diagnostic Testing: Chest x-ray, portable, single view, interpreted by myself shows no acute abnormality. Normal cardiac silhouette. Normal mediastinum. No effusions. No pneumonia seen at this time. Rhythm Strip Rhythm Strip: Sinus Rhythm Rate: 83 Ectopy: None EKG Initial EKG: Attestation: I personally reviewed and interpreted this EKG as follows: Interpretation: Sinus Rhythm and No Acute Injury Pattern Comments: This rhythm rate 83 no signs of acute SC nor ischemia. No dysrhythmia. Discharge Plan Triage Chief Complaint: Shortness of Breath ED Provider: Torey Friedman Dx/Rx/DC Orders Clinical Impression: History of pneumonia, Wheezing, History of hypertension Instructions: ED Pneumonia (Adult) Prescriptions: No Action lisinopril 10 MG tablet 40 mg PO DAILY Hold Instructions: Ordered albuterol sulfate [Ventolin HFA] 1 INHALER inhaler 1 puff inhalation Q4H PRN PRN (Reason: Dyspnea) escitalopram oxalate 10 MG tablet 10 mg PO DAILY hydrochlorothiazide 25 MG tablet 12.5 mg PO DAILY loratadine 10 MG tablet 10 mg PO DAILY albuterol sulfate 2.5 MG/3 ML solution for nebulization 2.5 mg inhalation Q4H PRN Qty: 25 0RF Rx Instructions: Use q4 hours and PRN for wheezing vitamin E 200 UNIT capsule 200 unit PO DAILY ascorbic acid (vitamin C) 500 MG capsule 500 mg PO DAILY Cholecalciferol (Vitamin D3) [Vitamin D3] 5,000 UNIT capsule 5,000 unit PO DAILY azithromycin 250 mg tablet 250 mg PO DAILY Patient Comments: TAKE 2 TABLETS BY MOUTH ON DAY 1, AND THEN TAKE 1 TABLET BY MOUTH ONCE A DAY ON DAY 2 THROUGH DAY 5 amoxicillin-pot clavulanate 875-125 mg tablet 1 tab PO Q12H Patient Comments: TAKE 1 TABLET BY MOUTH TWICE DAILY FOR 5 DAYS omega 9-bce-bzz-fish oil [Fish Oil] 1,200 (144-216) mg capsule 1 cap PO DAILY ferrous sulfate [Feosol] 325 mg (65 mg iron) tablet 325 mg PO DAILY fluticasone propion-salmeterol [Advair Diskus] 100-50 mcg/dose blister with device 1 inh inhalation DAILY Primary Care Provider: Mervat Avina Referrals: Mervat Avina MD [Primary Care Provider] - 3-5 Days if not improving Activity Restrictions/Additional Instructions: Plenty of fluids and rest. Continue and finish your antibiotic. Continue and finish your prednisone. Your inhaler as needed for the wheezing. Follow-up with your doctor as needed. Your lab test and chest x-ray and EKG tonight were all on room we will. Disposition Disposition: Home, Self Care
[2023-02-17 04:21] VITALS: PULSE 86; RESP 22
[2023-02-17] MEDS: Ipratropium/Albuterol Sulfate 3 ML AMPUL.NEB INHALATION (04:21)
[2023-02-17] MEDS: Albuterol 2.5 MG/3 ML VIAL.NEB. INHALATION (04:21)
[2023-02-17 04:34] VITALS: BP 216/95; PULSE 86; RESP 18; TEMP 36.5; O2SAT 95
[2023-02-17] MEDS: MethylPREDNISolone 125 MG/2 ML Vial IV (04:38)
[2023-02-17 04:46] LABS: Absolute Lymphocyte Count 1.35 X10^3/uL (0.83-4.51); Absolute Neutrophil Count 5.6 X10^3/uL (2.0-7.7); Basophil# 0.04 X10^3/uL; Basophil% 0.5 % (0-1); Eosinophil# 0.02 X10^3/uL; Eosinophils% 0.3 % (0-5); Hematocrit 43.8 % (40-54); Lymphocyte # 1.35 X10^3/ul (0.83-4.51); Lymphocyte % 17.9 % (19-41); Mean Corp Hgb Conc 34.2 g/dL (32-36); Mean Corpuscular Hgb 31.2 pg (27.0-32.0); Mean Corpuscular Volume 91.1 fL (80-94); Monocyte# 0.44 X10^3/uL; Monocyte% 5.8 % (0-10); NRBC Flagged by Analyzer 0 % (0-5); Neutrophil # 5.64 X10^3/uL (2.7-7.7); Neutrophil % 74.6 % (47-70); Platelet Count 272 K/mm3 (150-450); RBC Distribution Width CV 12.1 % (11.6-14.6); RBC Distribution Width SD 40.4 fl (35.1-43.9); Red Blood Count 4.81 M/mm3 (4.6-6.2); White Blood Count 7.6 K/mm3 (4.4-11.0)
--- NOTE | 2023-02-17 04:48 | CPS ---
x1 Albuterol given to pt. in ER as well
--- NOTE | 2023-02-17 04:50 | RAD_ITS ---
INDICATION: chest pain EXAMINATION/TECHNIQUE: X-RAY - XR Chest 1 View COMPARISON: 01/15/2023 chest radiograph. Findings: Single frontal view of the chest. Low lung volumes. LUNG PARENCHYMA: No acute focal airspace disease or mass lesion. PLEURA: No pleural effusion. No pneumothorax. HEART/GREAT VESSELS: Cardiomediastinal silhouette is unremarkable. BONES: Osseous structures are unremarkable for age. RAD/Chest 1 View (Portable) IMPRESSION: Given low lung volumes, chest with no acute disease. Electronically Signed: Rafael Ken MD at 7:13 EDT ,
[2023-02-17 05:00] VITALS: BP 194/106; PULSE 93; RESP 19; TEMP 36.5; O2SAT 93
[2023-02-17 05:04] LABS: Anion Gap 7 (5-15); BUN 17 mg/dL (7-18); BUN/Creat Ratio 16.3 RATIO (10-20); Calcium,Total 8.9 mg/dL (8.5-10.1); Chloride 103 mmol/L (98-107); Creatinine, Serum 1.04 mg/dL (0.70-1.30); EST Glomerular Filtration Rate 77 mL/min (>60); Est Glom Filt Rate - Afr Amer 94 mL/min (>60); Estimated Creatinine Clearance 80.45 ml/min; Glucose 214 mg/dL (74-106); Potassium 3.7 mmol/L (3.5-5.1); Sodium Level 138 mmol/L (136-145); Troponin-I HS 14 pg/mL (3.0-78.0)
[2023-02-17 05:32] VITALS: BP 194/107
== END 2023-02-17 05:33 | disposition home or self-care (01) ==
PROVIDERS: Emergency Provider Emergency Medicine; PCP Internal Medicine; Visit Provider Emergency Medicine
DX: R06.2 Wheezing (principal); I10 Essential (primary) hypertension; Z79.899 Other long term (current) drug therapy; Z87.891 Personal history of nicotine dependence
CPT/HCPCS: 71045; 80048; 84484; 85025; 93005; 94640; 96374; 99284; A4216

== ENCOUNTER 2023-05-06 16:50 | Emergency (ER) | payer SELFPAY ==
[2023-05-06] VITALS (9 sets, daily range): BP systolic 164–186; BP diastolic 95–104; PULSE 80–95; RESP 16–26; TEMP 36.4–37.1; O2SAT 93–98; BMI 38.2
--- NOTE | 2023-05-06 17:20 | ED.VIS.DYS ---
HPI History of Present Illness Chief Complaint: Cough [facility] Medical History Anxiety Asthma Degenerative disc disease Depression GERD (gastroesophageal reflux disease) HTN (hypertension) Home Medications albuterol sulfate 90 mcg/actuation aerosol inhaler (Ventolin HFA) 1 puff inhalation Q4H PRN PRN Dyspnea 05/05/13 [History Last Taken Unknown] escitalopram oxalate 10 mg tablet 10 mg PO DAILY 07/23/15 [History Last Taken Unknown] albuterol sulfate 2.5 mg/3 mL (0.083 %) solution for nebulization 2.5 mg (3 mL) inhalation Q4H PRN #25 vials 08/11/19 [Rx Last Taken Unknown] hydrochlorothiazide 25 mg tablet 12.5 mg PO DAILY EDEMA 08/11/19 [History Last Taken 05/05/23] loratadine 10 mg tablet 10 mg PO DAILY ALLERGIES 08/11/19 [History Last Taken Unknown] Cholecalciferol (Vitamin D3) [Vitamin D3] 5,000 unit PO DAILY 06/06/20 [History Last Taken Unknown] ascorbic acid (vitamin C) 500 mg capsule 1,000 mg PO DAILY 06/06/20 [History Last Taken Unknown] vitamin E 200 unit capsule 200 unit PO DAILY 06/06/20 [History Last Taken Unknown] ferrous sulfate 325 mg (65 mg iron) tablet (Feosol) 325 mg PO DAILY 02/17/23 [History Last Taken Unknown] fluticasone 100 mcg-salmeterol 50 mcg/dose blistr powdr for inhalation (Advair Diskus) 1 inh inhalation DAILY 02/17/23 [History Last Taken Unknown] omega 3-ltk-lit-fish oil 1,200 mg (144 mg-216 mg) capsule (Fish Oil) 1 cap PO DAILY 02/17/23 [History Last Taken Unknown] lisinopril 40 mg tablet 40 mg PO DAILY HTN 05/06/23 [History Last Taken 05/05/23] Allergy/AdvReac Type Severity Reaction Status Date / Time meloxicam Allergy Anaphylaxis Verified 05/06/23 16:51 citalopram AdvReac Vomiting Verified 05/06/23 16:51 verapamil AdvReac Nausea Verified 05/06/23 16:51 Surgical History History of total right hip replacement Social History Smoking Status: Former smoker EXAM Physical Exam Const Vital Signs: 05/06/23 16:52 05/06/23 17:16 05/06/23 18:19 Temperature 97.5 F L Temperature Source Temporal Pulse Rate 95 Respiratory Rate 16 Respiratory Effort Short of Breath Respiratory Depth Normal Respiratory Pattern Normal Blood Pressure 164/98 H Blood Pressure Mean 120 Pulse Ox 95 Oxygen Delivery Method Room Air Room Air 05/06/23 18:00 Temperature 98 F Temperature Source Oral Pulse Rate 80 Respiratory Rate 17 Respiratory Effort Respiratory Depth Respiratory Pattern Blood Pressure 167/95 H Blood Pressure Mean 119 Pulse Ox 98 Oxygen Delivery Method Room Air MDM MDM MDM Narrative Medical decision making narrative: HISTORY OF PRESENT ILLNESS: 62-year-old male here with cough, shortness of breath for 2 weeks. Notes he finished antibiotics and steroids with no improvement. Endorses wheezing. REVIEW OF SYSTEMS: Pertinent positives: Shortness of breath, wheezing Pertinent negatives: Chest pain, syncope PHYSICAL EXAM: Nursing triage notes reviewed, Vital signs reviewed Constitutional: please see mdm HENT: MMM Eyes: Pupils equal round and reactive to light, Extraocular muscles intact Neck: No stridor, no JVD, full neck ROM Lungs: Clear to auscultation, No wheezing or rales. No increased work of breathing, no conversational dyspnea, no accessory muscle use, no nasal flaring. No respiratory distress noted Heart: Regular rate and rhythm, No murmurs, No rubs and No gallops, 2+ distal pulses (radial, femoral, posterior tibial) in all extremities Abdomen: Soft, there is no tenderness, rigidity, rebound or guarding, no obvious peritoneal signs, no palpable pulsatile abdominal masses, no auscultated abdominal bruit : No CVAT Extremities: No edema Neuro: No focal neurological deficits, cranial nerves II through XII intact, 5/5 strength in all extremities. Intact sensation to light touch in all extremities, 2+ reflexes bilateral patella tendons. Normal gait. No ataxia. Skin: No rash or lesions noted MEDICAL DECISION MAKING: Chief Complaint: Shortness of breath, wheezing External records reviewed: Chest x-ray from February 2003 shows no acute process Factors affecting care: Hypertension, anxiety, GERD MDM Narrative: Patient was initially hemodynamically stable, afebrile, nontoxic-appearing. Exam without focal cardiopulmonary normalities. No signs of focal consolidation auscultation I considered the following differential diagnosis: Pneumonia, COVID, anemia, ACS, arrhythmia ALL IMAGES (IF OBTAINED) HAVE BEEN PERSONALLY REVIEWED AND INTERPRETED BY MYSELF. High-sensitivity troponin is negative, no evidence of myocardial ischemia EKG with normal sinus rhythm, normal axis, normal normals, no STEMI CBC with leukocytosis suggestive of systemic inflammation, no anemia or thrombocytopenia BMP without evidence of significant electrolyte abnormalities, no anion gap, no acute kidney injury. BNP within normal limits Chest x-ray read reviewed myself shows evidence of likely left lower lobe infiltrate consistent with pneumonia given white blood cell count and cough Synthesis of the patient's history, physical exam, labs images suggest evidence of pneumonia. Will give broad-spectrum antibiotics in the form of levofloxacin. The patient and/or family, caregivers express understanding. The patient and/or family, caregivers agrees with the plan. Shared decision making: I will have a discussion with the patient and or visitors regarding risk/benefits of further testing or admission. They will be made aware of of the risk/benefits inherent in this decision they will be given the opportunity to voice understanding. Total critical care time today provided was at least 0 minutes. This excludes separately billable procedures. Critical care time (if documented) is secondary to the patient having high probability of clinically significant/life threatening deterioration in the patient's condition which required my urgent intervention. Impression: 1. Cough 2. Dyspnea 3. Leukocytosis 4. Community-acquired pneumonia Dispo: Discharge home Lab Data Labs: Laboratory Results - last 24 hr 05/06/23 18:23 WBC 15.5 H RBC 5.21 Hgb 16.4 Hct 49.1 MCV 94.2 H MCH 31.5 MCHC 33.4 RDW Std Deviation 43.8 RDW Coeff of Rose 12.9 Plt Count 299 MPV 8.7 Immature Gran % (Auto) 1.300 H Neut % (Auto) 71.1 H Lymph % (Auto) 17.7 L [place] % (Auto) 7.9 Eos % (Auto) 1.4 Baso % (Auto) 0.6 Absolute Neuts (auto) 11.0 H Absolute Lymphs (auto) 2.75 Nucleated RBC % 0 Sodium 137 Potassium 3.7 Chloride 101 Carbon Dioxide 30.0 Anion Gap 6 BUN 19 H Creatinine 1.26 Estim Creat Clear Calc 66.40 Est GFR (MDRD) Af Amer 75 Est GFR (MDRD) Non-Af 62 BUN/Creatinine Ratio 15.1 Glucose 154 H Calcium 9.2 Troponin I High Sens 18 B-Natriuretic Peptide 9.5 Radiography Diagnostic Testing: Clinical Impression(s) from Imaging Studies Chest X-Ray 05/06/23 18:25 IMPRESSION: Basilar atelectasis. Electronically Signed: Lino Kee DO at 18:38 EST Reading Location ID and State: [facility] / [place] Tel [phone], Service support , Discharge Plan Triage Chief Complaint: Cough ED Provider: Jaret Fisher Dx/Rx/DC Orders Prescriptions: No Action albuterol sulfate [Ventolin HFA] 1 INHALER inhaler 1 puff inhalation Q4H PRN PRN (Reason: Dyspnea) escitalopram oxalate 10 MG tablet 10 mg PO DAILY Patient Comments: takes 20 mg tablet for seasonal depression as of 05/06/23 hydrochlorothiazide 25 MG tablet 12.5 mg PO DAILY loratadine 10 MG tablet 10 mg PO DAILY albuterol sulfate 2.5 MG/3 ML solution for nebulization 2.5 mg inhalation Q4H PRN Qty: 25 0RF Rx Instructions: Use q4 hours and PRN for wheezing vitamin E 200 UNIT capsule 200 unit PO DAILY ascorbic acid (vitamin C) 500 MG capsule 1,000 mg PO DAILY Cholecalciferol (Vitamin D3) [Vitamin D3] 5,000 UNIT capsule 5,000 unit PO DAILY omega 7-ene-ean-fish oil [Fish Oil] 1,200 (144-216) mg capsule 1 cap PO DAILY ferrous sulfate [Feosol] 325 mg (65 mg iron) tablet 325 mg PO DAILY fluticasone propion-salmeterol [Advair Diskus] 100-50 mcg/dose blister with device 1 inh inhalation DAILY lisinopril 40 mg tablet 40 mg PO DAILY Patient Comments: TAKE 1 TABLET BY MOUTH ONCE DAILY Primary Care Provider: Mervat Avina Referrals: Mervat Avina MD [Primary Care Provider] -
--- NOTE | 2023-05-06 18:19 | EKG12_ITS ---
Test Reason : COUGH Blood Pressure : / mmHG Vent. Rate : 082 BPM Atrial Rate : 082 BPM P-R Int : 150 ms QRS Dur : 090 ms QT Int : 358 ms P-R-T Axes : 057 000 061 degrees QTc Int : 418 ms Normal sinus rhythm Normal ECG Confirmed by BREANA CARABALLO, MISSY ([id number]), movie editor AMILCAR CANCHOLA ([id number]) on 05/15/2023 9:18:20 AM Referred By: Confirmed By:MISSY TOUSSAINT MD
--- NOTE | 2023-05-06 18:25 | RAD_ITS ---
INDICATION: shortness of breath, cough EXAMINATION/TECHNIQUE: X-RAY - XR Chest 1 View COMPARISON: February 17, 2023 FINDINGS: LINES/DEVICES: None. LUNGS: No consolidation, edema or effusion. Basilar atelectasis. No pneumothorax. MEDIASTINUM AND CARDIOVASCULAR STRUCTURES: Cardiac silhouette not enlarged. Central airways and mediastinal contour are unremarkable. BONES AND SOFT TISSUES: Unremarkable. RAD/Chest 1 View (Portable) IMPRESSION: Basilar atelectasis. Electronically Signed: Lino Kee DO at 18:38 EST ,
[2023-05-06] MEDS: Ketorolac 15 MG/ML Vial IV (18:30)
[2023-05-06] MEDS: 0.9% Normal Saline (1000mL) 1,000 ML 999 ML IV (18:30)
[2023-05-06 18:34] LABS: Absolute Lymphocyte Count 2.75 X10^3/uL (0.83-4.51); Basophil% 0.6 % (0-1); Eosinophil# 0.21 X10^3/uL; Eosinophils% 1.4 % (0-5); Hematocrit 49.1 % (40-54); Hemoglobin 16.4 g/dL (13.0-16.5); Lymphocyte # 2.75 X10^3/ul (0.83-4.51); Lymphocyte % 17.7 % (19-41); Mean Corp Hgb Conc 33.4 g/dL (32-36); Mean Corpuscular Hgb 31.5 pg (27.0-32.0); Mean Corpuscular Volume 94.2 fL (80-94); Mean Platelet Vol. 8.7 fl (6.2-12.0); Monocyte# 1.22 X10^3/uL; Monocyte% 7.9 % (0-10); NRBC Flagged by Analyzer 0 % (0-5); Neutrophil # 11.02 X10^3/uL (2.7-7.7); Neutrophil % 71.1 % (47-70); Platelet Count 299 K/mm3 (150-450); RBC Distribution Width CV 12.9 % (11.6-14.6); RBC Distribution Width SD 43.8 fl (35.1-43.9); Red Blood Count 5.21 M/mm3 (4.6-6.2); White Blood Count 15.5 K/mm3 (4.4-11.0)
[2023-05-06 18:50] LABS: Anion Gap 6 (5-15); BUN 19 mg/dL (7-18); BUN/Creat Ratio 15.1 RATIO (10-20); Calcium,Total 9.2 mg/dL (8.5-10.1); Chloride 101 mmol/L (98-107); Creatinine, Serum 1.26 mg/dL (0.70-1.30); EST Glomerular Filtration Rate 62 mL/min (>60); Est Glom Filt Rate - Afr Amer 75 mL/min (>60); Glucose 154 mg/dL (74-106); Potassium 3.7 mmol/L (3.5-5.1); Sodium Level 137 mmol/L (136-145); Troponin-I HS 18 pg/mL (3.0-78.0)
[2023-05-06 19:11] LABS: BNP,B-Type NATRIURETIC PEPTIDE 9.5 pg/mL (0-100)
[2023-05-06] MEDS: levoFLOXacin 750 MG Tablet PO (19:32)
== END 2023-05-06 20:00 | disposition home or self-care (01) ==
PROVIDERS: Emergency Provider Emergency Medicine; PCP Internal Medicine; Visit Provider Emergency Medicine
DX: J18.9 Pneumonia, unspecified organism (principal); I10 Essential (primary) hypertension; Z87.891 Personal history of nicotine dependence
CPT/HCPCS: 71045; 80048; 83880; 84484; 85025; 87428; 93005; 96361; 96374; 99284; J7030; A4216

== ENCOUNTER 2023-08-02 21:10 | Emergency (ER) | payer MEDICARE, OTHER, SELFPAY ==
[2023-08-02] VITALS (14 sets, daily range): BP systolic 174–185; BP diastolic 96–109; PULSE 74–88; RESP 13–19; TEMP 36.6; O2SAT 93–96; BMI 38.9
--- NOTE | 2023-08-02 21:29 | EKG12_ITS ---
Test Reason : CP Blood Pressure : / mmHG Vent. Rate : 082 BPM Atrial Rate : 082 BPM P-R Int : 160 ms QRS Dur : 090 ms QT Int : 362 ms P-R-T Axes : 057 009 061 degrees QTc Int : 422 ms Normal sinus rhythm Nonspecific ST abnormality Abnormal ECG Confirmed by Pancho Handy ([id number]), assistant film editor AMILCAR CANCHOLA ([id number]) on 08/03/2023 8:31:37 AM Referred By: [place] Confirmed By:Pancho Handy
--- NOTE | 2023-08-02 21:30 | RAD_ITS ---
EXAM: XR CHEST, 2 VIEWS CLINICAL INDICATION: chest pain TECHNIQUE: Frontal and lateral views of the chest. COMPARISON: No relevant prior studies available. FINDINGS: LUNGS AND PLEURAL SPACES: Unremarkable. No consolidation or edema. No pneumothorax. No effusion. HEART: Unremarkable. Cardiac silhouette not enlarged. MEDIASTINUM: Central airways and mediastinal contour are unremarkable. BONES/JOINTS: Multilevel thoracic spondylosis and anterior longitudinal ligament ossification. No acute fracture. SOFT TISSUES: Unremarkable. RAD/Chest PA and Lateral IMPRESSION: No acute findings in the chest. Electronically Signed: Hafsa Younger MD at 23:12 EDT ,
--- NOTE | 2023-08-02 21:32 | EDS_ITS ---
HPI History of Present Illness Chief Complaint: Chest Pain Informant: patient Narrative Narrative: Intermittent epigastric tremors with palpitations over the past few months. Has been recently taking care of his mother who couple weeks ago. And stress with losing a brother due to PE and uncle due to cancer in the past year. Today while moving there is intermittent sharp pain of his left chest to his shoulder lasting a second. No dyspnea. No nausea or vomiting. He felt warm. History of prediabetes not on any medications. Remote tobacco 30 years ago. Grandfathers had MIs in the 70s. Stress test last time 15 years ago no history of heart cath. Currently asymptomatic. Prior Similar Symptoms: No CVD Risk Factors: Positive for Diabetes; Negative for Hypertension, Hypercholes terolemia, Family History 1' </=55 or Smoking PE Risk Factors: Negative for Recent Travel/Surgery, Recent Immobilization or Prior DVT or PE [facility] Medical History Anxiety Asthma Degenerative disc disease Depression GERD (gastroesophageal reflux disease) HTN (hypertension) Home Medications albuterol sulfate 90 mcg/actuation aerosol inhaler (Ventolin HFA) 1 puff inhalation Q4H PRN PRN Dyspnea 05/05/13 [History Last Taken Unknown] escitalopram oxalate 10 mg tablet 20 mg PO DAILY 07/23/15 [History Last Taken Unknown] albuterol sulfate 2.5 mg/3 mL (0.083 %) solution for nebulization 2.5 mg (3 mL) inhalation Q4H PRN #25 vials 08/11/19 [Rx Last Taken Unknown] hydrochlorothiazide 25 mg tablet 12.5 mg PO DAILY EDEMA 08/11/19 [History Last Taken 05/05/23] loratadine 10 mg tablet 10 mg PO DAILY ALLERGIES 08/11/19 [History Last Taken Unknown] Cholecalciferol (Vitamin D3) [Vitamin D3] 5,000 unit PO DAILY 06/06/20 [History Last Taken Unknown] ascorbic acid (vitamin C) 500 mg capsule 1,000 mg PO DAILY 06/06/20 [History Last Taken Unknown] vitamin E 200 unit capsule 200 unit PO DAILY 06/06/20 [History Last Taken Unknown] ferrous sulfate 325 mg (65 mg iron) tablet (Feosol) 325 mg PO DAILY 02/17/23 [History Last Taken Unknown] fluticasone 100 mcg-salmeterol 50 mcg/dose blistr powdr for inhalation (Advair Diskus) 1 inh inhalation DAILY 02/17/23 [History Last Taken Unknown] omega 9-fjt-[id number]-fish oil 1,200 mg (144 mg-216 mg) capsule (Fish Oil) 1 cap PO DAILY 02/17/23 [History Last Taken Unknown] lisinopril 40 mg tablet 40 mg PO DAILY HTN 05/06/23 [History Last Taken 05/05/23] vitamin D2-vitamin K1 PO DAILY 08/02/23 [History Last Taken Unknown] Allergy/AdvReac Type Severity Reaction Status Date / Time meloxicam Allergy Anaphylaxis Verified 08/02/23 21:15 citalopram AdvReac Vomiting Verified 08/02/23 21:15 verapamil AdvReac Nausea Verified 08/02/23 21:15 Surgical History History of total right hip replacement Social History Smoking Status: Former smoker ROS ROS ED Constitutional Constitutional ED: Denies chills, fever(s) or sweats Eyes Eyes: Denies change in vision ENT ENT ED: Denies dysphagia or sore throat Cardiovascular Cardiovascular: Reports chest pain; Denies leg edema, palpitations or racing heartbeat Respiratory/Chest Respiratory/Chest: Denies cough, dyspnea or dyspnea on exertion Gastrointestinal Gastrointestinal: Denies abdominal pain, diarrhea, nausea or vomiting Genitourinary Genitourinary ED: Denies dysuria, hematuria or urinary frequency Musculoskeletal Musculoskeletal: Denies back pain, extremity pain or neck pain Integumentary Denies rash or wounds Neurologic Neurologic: Denies headache(s), paresthesias or weakness EXAM Physical Exam Const Vital Signs: 08/02/23 21:11 08/02/23 22:00 08/02/23 21:58 Temperature 97.8 F Temperature Source Temporal Pulse Rate 88 81 Respiratory Rate 16 18 Blood Pressure 179/109 H Blood Pressure Mean 132 Pulse Ox 96 95 Oxygen Delivery Method Room Air Room Air 08/02/23 22:00 08/02/23 22:10 08/02/23 22:15 Temperature Temperature Source Pulse Rate 79 79 76 Respiratory Rate 15 13 16 Blood Pressure 185/98 H 183/105 H Blood Pressure Mean 125 125 Pulse Ox 96 95 94 Oxygen Delivery Method 08/02/23 22:15 08/02/23 22:26 08/02/23 22:30 Temperature Temperature Source Pulse Rate 78 74 Respiratory Rate 18 18 Blood Pressure 183/105 H 179/98 H Blood Pressure Mean 125 120 Pulse Ox 95 94 Oxygen Delivery Method 08/02/23 22:40 08/02/23 22:45 08/02/23 22:50 Temperature Temperature Source Pulse Rate 79 77 78 Respiratory Rate 16 16 16 Blood Pressure 175/98 H Blood Pressure Mean 121 Pulse Ox 94 93 93 Oxygen Delivery Method 08/02/23 23:00 08/02/23 23:10 08/02/23 23:15 Temperature Temperature Source Pulse Rate 77 78 81 Respiratory Rate 19 H 16 18 Blood Pressure 174/96 H 180/105 H Blood Pressure Mean 119 125 Pulse Ox 94 93 93 Oxygen Delivery Method 08/02/23 23:20 08/03/23 00:00 Temperature Temperature Source Pulse Rate 80 73 Respiratory Rate 17 18 Blood Pressure 165/97 H Blood Pressure Mean 119 Pulse Ox 94 97 Oxygen Delivery Method Room Air Positive well nourished and well developed General Appearance ED: well developed and NAD HEENT Reports moist mucous membranes normocephalic and atraumatic Eyes PERRL, EOMs intact bilaterally and conjunctivae normal General Eye ED: Yes normal appearance of both eyes Neck no lymphadenopathy and supple General: Negative for tenderness Chest Wall Chest: Negative for tenderness Resp normal respiratory effort and normal air movement Effort and Inspection: symmetric chest movement; Negative for respiratory distress Cardio regular rate, regular rhythm and no murmurs Peripheral Pulses: pulses 2+ throughout GI normal to inspection, nondistended, normoactive bowel sounds GI Narrative: Mild epigastric discomfort. Negative Chen's or McBurney's tenderness. Palpation: Negative for guarding or rebound tenderness present Back/Spine no CVA tenderness and no thoracic nor lumbar tenderness Extremity normal to inspection General Extremety ED: Negative for edema or tenderness General Extremity: Negative for edema Neuro oriented x3 and no sensory deficits noted Sensorium / Orientation: awake and alert Skin no rashes or lesions noted and no wounds Heart Score History: Slightly/Non-Suspicious ECG: Normal Age: >45 - <65 years Risk Factors: 1 or 2 Risk Factors Troponin: </= Normal Limit Score: 2 MDM MDM MDM Narrative Medical decision making narrative: Interventions / MDM: Differential diagnosis: Atypical chest pain. Diagnosis considered but do not suspect: ACS however EKG cardiac enzymes negative. My EKG interpretation: Sinus rate of 82, no ST changes. QTc 422. Imaging independently reviewed and interpreted by myself: 2 view chest x-ray: No acute process. External documents reviewed: N/A Test considered but not ordered:N/A ED course: EKG no acute findings. Aspirin ordered. Cardiac workup initiated including abdominal labs. Cardiac workup labs negative troponin. Slight elevation lipase at 95. Normal liver enzymes. Remains symptom-free. Clinically not pancreatitis. Chest x-ray negative. 0040: Delta troponin returning negative. Remains chest pain-free. Discussed follow-up with his PCP for further testing as an outpatient. Strict return precautions. No blood pressure elevated in the ED. No history of hypertension. Discussed to follow-up for repeat blood pressure checks and treatment as indicated. All questions were answered. Re-evaluation: stable Disposition discussed with patient/family/significant other: Patient Case discussed with consulting clinician: N/A This note was generated with [employer] dictation software. It may contain incorrect words, spelling, and punctuation that were not noted in checking the note before signing. Lab Data Attestation: I reviewed the patient's lab results. Labs: Laboratory Results - last 24 hr 08/02/23 08/02/23 21:50 23:50 WBC 6.0 RBC 4.73 Hgb 15.1 Hct 42.5 MCV 89.9 MCH 31.9 MCHC 35.5 RDW Std Deviation 40.3 RDW Coeff of Rose 12.5 Plt Count 234 MPV 8.8 Immature Gran % (Auto) 0.200 Neut % (Auto) 59.7 Lymph % (Auto) 26.1 [place] % (Auto) 9.9 Eos % (Auto) 3.3 Baso % (Auto) 0.8 Absolute Neuts (auto) 3.6 Absolute Lymphs (auto) 1.56 Nucleated RBC % 0 Sodium 140 Potassium 3.4 L Chloride 102 Carbon Dioxide 31.0 Anion Gap 7 BUN 14 Creatinine 1.03 Estim Creat Clear Calc 102.16 Est GFR (MDRD) Af Amer 94 Est GFR (MDRD) Non-Af 78 BUN/Creatinine Ratio 13.6 Glucose 165 H Calcium 9.3 Total Bilirubin 0.40 Direct Bilirubin 0.14 AST 26 ALT 51 Alkaline Phosphatase 63 Troponin I High Sens 13 14 Total Protein 6.7 Albumin 3.6 Globulin 3.1 Lipase 95 H Radiography Diagnostic Testing: Clinical Impression(s) from Imaging Studies Chest X-Ray 08/02/23 21:30 IMPRESSION: No acute findings in the chest. Electronically Signed: Hafsa Younger MD at 23:12 EDT Reading Location ID and State: [address] [place] [address] Tel , Service support , Discharge Plan Triage Chief Complaint: Chest Pain ED Provider: Robi Chappell Dx/Rx/DC Orders Clinical Impression: Atypical chest pain, Elevated blood-pressure reading without diagnosis of hypertension Instructions: ED Chest Pain, Uncertain Cause Prescriptions: No Action albuterol sulfate [Ventolin HFA] 1 INHALER inhaler 1 puff inhalation Q4H PRN PRN (Reason: Dyspnea) escitalopram oxalate 10 MG tablet 20 mg PO DAILY Patient Comments: takes 20 mg tablet for seasonal depression as of 05/06/23 hydrochlorothiazide 25 MG tablet 12.5 mg PO DAILY loratadine 10 MG tablet 10 mg PO DAILY albuterol sulfate 2.5 MG/3 ML solution for nebulization 2.5 mg inhalation Q4H PRN Qty: 25 0RF Rx Instructions: Use q4 hours and PRN for wheezing vitamin E 200 UNIT capsule 200 unit PO DAILY ascorbic acid (vitamin C) 500 MG capsule 1,000 mg PO DAILY Cholecalciferol (Vitamin D3) [Vitamin D3] 5,000 UNIT capsule 5,000 unit PO DAILY omega 8-rxk-uxv-fish oil [Fish Oil] 1,200 (144-216) mg capsule 1 cap PO DAILY ferrous sulfate [Feosol] 325 mg (65 mg iron) tablet 325 mg PO DAILY fluticasone propion-salmeterol [Advair Diskus] 100-50 mcg/dose blister with device 1 inh inhalation DAILY lisinopril 40 mg tablet 40 mg PO DAILY Patient Comments: TAKE 1 TABLET BY MOUTH ONCE DAILY vitamin D2-vitamin K1 PO DAILY Primary Care Provider: Mervat Avina Referrals: Mervat Avina MD [Primary Care Provider] - 3-5 Days Activity Restrictions/Additional Instructions: Cardiac workup negative in the ED. Troponin negative x 2. Chest x-ray negative. Slight elevation in her lipase at 95 normal of 75. Follow-up with her doctor further testing as an outpatient. Have blood pressure rechecked by your PCP. symptoms worsening, return to the ED for reevaluation. Disposition Disposition: Home, Self Care
[2023-08-02] MEDS: Aspirin 81 MG TAB.CHEW 324 MG PO (21:58)
[2023-08-02 22:06] LABS: Absolute Lymphocyte Count 1.56 X10^3/uL (0.83-4.51); Absolute Neutrophil Count 3.6 X10^3/uL (2.0-7.7); Basophil# 0.05 X10^3/uL; Basophil% 0.8 % (0-1); Eosinophils% 3.3 % (0-5); Hematocrit 42.5 % (40-54); Hemoglobin 15.1 g/dL (13.0-16.5); Lymphocyte # 1.56 X10^3/ul (0.83-4.51); Lymphocyte % 26.1 % (19-41); Mean Corp Hgb Conc 35.5 g/dL (32-36); Mean Corpuscular Hgb 31.9 pg (27.0-32.0); Mean Corpuscular Volume 89.9 fL (80-94); Mean Platelet Vol. 8.8 fl (6.2-12.0); Monocyte# 0.59 X10^3/uL; Monocyte% 9.9 % (0-10); NRBC Flagged by Analyzer 0 % (0-5); Neutrophil # 3.57 X10^3/uL (2.7-7.7); Neutrophil % 59.7 % (47-70); Platelet Count 234 K/mm3 (150-450); RBC Distribution Width CV 12.5 % (11.6-14.6); RBC Distribution Width SD 40.3 fl (35.1-43.9); Red Blood Count 4.73 M/mm3 (4.6-6.2)
[2023-08-02 22:29] LABS: Anion Gap 7 (5-15); BUN 14 mg/dL (7-18); BUN/Creat Ratio 13.6 RATIO (10-20); Calcium,Total 9.3 mg/dL (8.5-10.1); Chloride 102 mmol/L (98-107); Creatinine, Serum 1.03 mg/dL (0.70-1.30); EST Glomerular Filtration Rate 78 mL/min (>60); Est Glom Filt Rate - Afr Amer 94 mL/min (>60); Estimated Creatinine Clearance 102.16 ml/min; Glucose 165 mg/dL (74-106); Lipase 95 U/L (13-75); Potassium 3.4 mmol/L (3.5-5.1); Sodium Level 140 mmol/L (136-145); Troponin-I HS (w/2H Reflex) 13 pg/mL (3.0-78.0)
[2023-08-02 23:51] LABS: Protein, Total 6.7 g/dL (6.4-8.2)
[2023-08-02 23:52] LABS: AST(SGOT) 26 U/L (15-37); Alanine Aminotransfer ALT/SGPT 51 U/L (16-61); Albumin, Serum 3.6 g/dL (3.2-5.0); Alkaline Phosphatase 63 U/L (45-117); Bilirubin, Direct 0.14 mg/dL (0.00-0.30); Globulin 3.1 g/dL (2.2-4.2)
[2023-08-02 23:58] LABS: Reflex Troponin-HS? (from REC) Y
[2023-08-03] VITALS: BP 165/97; PULSE 73; RESP 18; O2SAT 97
[2023-08-03 00:40] LABS: Troponin-I HS 14 pg/mL (3.0-78.0)
[2023-08-03 00:49] VITALS: BP 170/101; PULSE 75; RESP 18; TEMP 36.3; O2SAT 95
== END 2023-08-03 00:50 | disposition home or self-care (01) ==
PROVIDERS: Emergency Provider Emergency Medicine; PCP Internal Medicine; Visit Provider Emergency Medicine
DX: R07.89 Other chest pain (principal); R03.0 Elevated blood-pressure reading, without diagnosis of hypertension; Z63.4 Disappearance and death of family member; Z87.891 Personal history of nicotine dependence
CPT/HCPCS: 71046; 80048; 80076; 83690; 84484; 85025; 93005; 99284; A4216

== ENCOUNTER 2023-10-21 21:16 | Emergency (ER) | payer MEDICARE, SELFPAY ==
[2023-10-21 21:17] VITALS: BP 190/100; PULSE 81; RESP 16; TEMP 36.9; O2SAT 97; BMI 38.9
--- NOTE | 2023-10-21 22:07 | CT_ITS ---
EXAM: CT ANGIOGRAPHY HEAD AND NECK WITH INTRAVENOUS CONTRAST CLINICAL INDICATION: headache, nausea TECHNIQUE: [place]/head and neck CT angiography protocol performed with intravenous contrast. This CT exam was performed using one or more of the following dose reduction techniques: automated exposure control, adjustment of the mA and/or kV according to patient size, and/or use of iterative reconstruction technique. MIP reconstructed images were created and reviewed. CONTRAST: IV 100mL Isovue-370 RADIATION DOSE: CTDIvol = 30.43 mGy, DLP = 1727.32 mGy-cm COMPARISON: No relevant prior studies available. FINDINGS: HEAD: RIGHT ANTERIOR CEREBRAL ARTERY: Unremarkable. No occlusion or significant stenosis. Anterior communicating artery is present. No aneurysm. RIGHT MIDDLE CEREBRAL ARTERY: Unremarkable. No occlusion or significant stenosis. No aneurysm. RIGHT POSTERIOR CEREBRAL ARTERY: Unremarkable. No occlusion or significant stenosis. No aneurysm. RIGHT INTRACRANIAL INTERNAL CAROTID ARTERY: Unremarkable. No significant stenosis. No dissection or occlusion. RIGHT INTRACRANIAL VERTEBRAL ARTERY: Unremarkable. No significant stenosis. No dissection or occlusion. LEFT ANTERIOR CEREBRAL ARTERY: Unremarkable. No occlusion or significant stenosis. No aneurysm. LEFT MIDDLE CEREBRAL ARTERY: Unremarkable. No occlusion or significant stenosis. No aneurysm. LEFT POSTERIOR CEREBRAL ARTERY: Unremarkable. No occlusion or significant stenosis. No aneurysm. LEFT INTRACRANIAL INTERNAL CAROTID ARTERY: Unremarkable. No significant stenosis. No dissection or occlusion. LEFT INTRACRANIAL VERTEBRAL ARTERY: Unremarkable. No significant stenosis. No dissection or occlusion. BASILAR ARTERY: Unremarkable. No occlusion or significant stenosis. No aneurysm. OTHER VASCULATURE: No vascular malformation. NECK: RIGHT COMMON CAROTID ARTERY: Unremarkable. No significant stenosis. No dissection or occlusion. RIGHT EXTRACRANIAL INTERNAL CAROTID ARTERY: Unremarkable. No significant stenosis. No dissection or occlusion. RIGHT EXTERNAL CAROTID ARTERY: Unremarkable. No occlusion. RIGHT EXTRACRANIAL VERTEBRAL ARTERY: Unremarkable. No significant stenosis. No dissection or occlusion. LEFT COMMON CAROTID ARTERY: Unremarkable. No significant stenosis. No dissection or occlusion. LEFT EXTRACRANIAL INTERNAL CAROTID ARTERY: Unremarkable. No significant stenosis. No dissection or occlusion. LEFT EXTERNAL CAROTID ARTERY: Unremarkable. No occlusion. LEFT EXTRACRANIAL VERTEBRAL ARTERY: Unremarkable. No significant stenosis. No dissection or occlusion. BRACHIOCEPHALIC AND SUBCLAVIAN ARTERIES: Unremarkable as visualized. No occlusion or significant stenosis. LUNG APICES: Unremarkable as visualized. HEAD and NECK: BONES/JOINTS: Unremarkable. No discrete lytic or blastic abnormalities. SOFT TISSUES: Unremarkable. CAROTID STENOSIS REFERENCE USING NASCET CRITERIA: % ICA stenosis = (1 - narrowest ICA diameter/diameter of distal cervical ICA) x 100. Mild - <50% stenosis. Moderate - 50-69% stenosis. Severe - 70-94% stenosis. Near occlusion - 95-99% stenosis. Occluded - 100% stenosis. * A single impression for all exams can be found at the end of this report EXAM: CT HEAD WITHOUT INTRAVENOUS CONTRAST CLINICAL INDICATION: headache, nausea TECHNIQUE: Multiple axial images were obtained of the head without intravenous contrast. This CT exam was performed using one or more of the following dose reduction techniques: automated exposure control, adjustment of the mA and/or kV according to patient size, and/or use of iterative reconstruction technique. CONTRAST: IV 100mL Isovue-370 RADIATION DOSE: CTDIvol = 30.43 mGy, DLP = 1727.32 mGy-cm COMPARISON: No relevant prior studies available. FINDINGS: BRAIN AND EXTRA-AXIAL SPACES: Unremarkable. No intra- or extra-axial hemorrhage. No evidence of acute infarct. No intracranial mass or mass effect. There is preservation of the jane/white matter interface. Posterior fossa structures are unremarkable. Ventricles are appropriate for age. No hydrocephalus. Basal cisterns are patent. BONES/JOINTS: Unremarkable. No discrete lytic or blastic abnormalities. SINUSES: Unremarkable as visualized. Clear. MASTOID AIR CELLS: Unremarkable. Clear. ORBITS: Visualized globes, extraocular muscles, optic nerves and retrobulbar fat appear unremarkable. * A single impression for all exams can be found at the end of this report CT/CTA Head AND Neck W/ Contrast IMPRESSION: CT ANGIOGRAPHY HEAD AND NECK WITH INTRAVENOUS CONTRAST: Negative CTA carotid and CTA brain. CT HEAD WITHOUT INTRAVENOUS CONTRAST: Negative head/brain CT without intravenous contrast. Electronically Signed: Rajesh Aden MD at 23:48 EDT ,
--- NOTE | 2023-10-21 22:09 | EX.ED.VIS.HA ---
HPI History of Present Illness Chief Complaint: Headache Detail of Chief Complaint: Headache Informant: patient Narrative Narrative: Patient presents with a headache that started 2 hours ago. Patient states he was watching television when it hit him suddenly. Started in the back of his head, radiates to both sides front of the head. Complains of nausea. He had no vomiting. He denies photophobia. No history of migraines. Patient currently working with a chiropractor for spinal decompression and last had his neck work done about 2 days ago. Patient denies recent illness. Denies fever or cough. Denies sore throat. Patient denies any falls or head injuries. [facility] Medical History Anxiety Asthma Degenerative disc disease Depression GERD (gastroesophageal reflux disease) HTN (hypertension) Home Medications ?Medication ?Instructions ?Recorded ?Last Taken ?Type albuterol sulfate 90 mcg/actuation 1 puff inhalation Q4H PRN PRN 05/05/13 Unknown History aerosol inhaler (Ventolin HFA) Dyspnea escitalopram oxalate 10 mg tablet 20 mg PO DAILY 07/23/15 Unknown History hydrochlorothiazide 25 mg tablet 12.5 mg PO DAILY EDEMA 08/11/19 05/05/23 History loratadine 10 mg tablet 10 mg PO DAILY ALLERGIES 08/11/19 Unknown History fluticasone 100 mcg-salmeterol 50 1 inh inhalation DAILY 02/17/23 Unknown History mcg/dose blistr powdr for inhalation (Advair Diskus) lisinopril 40 mg tablet 40 mg PO DAILY HTN 05/06/23 05/05/23 History Allergy/AdvReac Type Severity Reaction Status Date / Time meloxicam Allergy Anaphylaxis Verified 10/21/23 21:19 citalopram AdvReac Vomiting Verified 10/21/23 21:19 verapamil AdvReac Nausea Verified 10/21/23 21:19 Surgical History History of total right hip replacement Social History Smoking Status: Former smoker ROS ROS ED Review of Systems ROS Unobtainable: other Constitutional Constitutional ED: Reports lethargy; Denies chills, fever(s), sweats or weight loss Eyes Eyes: Denies blurry vision, change in vision or diplopia ENT ENT ED: Denies rhinorrhea or sore throat Cardiovascular Cardiovascular: Denies chest pain, orthopnea or racing heartbeat Respiratory/Chest Respiratory/Chest: Denies cough, dyspnea, dyspnea on exertion, orthopnea or sputum Gastrointestinal Gastrointestinal: Reports nausea; Denies abdominal pain, diarrhea or vomiting Genitourinary Genitourinary ED: Denies dysuria, hematuria or urinary frequency Musculoskeletal Musculoskeletal: Denies arthralgias, back pain, myalgias or neck pain Integumentary Denies abscess, Abrasions or rash Neurologic Neurologic: Reports headache(s); Denies weakness Psychiatric Psychiatric: Denies anxiety, depression or suicidal thoughts Endocrine Endocrinology: Denies polydipsia, polyphagia or polyuria Hematologic/Lymphatic Hematologic/Lymphatic: Denies easy bleeding, easy bruising or lymphadenopathy Allergic/Immunologic Allergic/Immunologic ED: Denies mouth swelling, tongue swelling or urticaria EXAM Physical Exam Const Vital Signs: 10/21/23 21:17 10/21/23 23:16 Temperature 98.4 F Temperature Source Temporal Pulse Rate 81 79 Respiratory Rate 16 20 H Blood Pressure 190/100 H 179/88 H Blood Pressure Mean 130 118 Pulse Ox 97 94 Oxygen Delivery Method Room Air Room Air Positive well nourished and well developed General Appearance ED: well developed and NAD HEENT Reports TM's clear and moist mucous membranes normocephalic and atraumatic; Negative for trauma or tenderness Tympanic Membrane ED: Yes TM's clear Eyes PERRL and EOMs intact bilaterally General Eye ED: Negative for pale conjunctiva or scleral icterus Neck no lymphadenopathy, supple and no JVD General: Negative for tenderness Chest Wall inspection of chest normal and palpation of chest normal Chest: Negative for tenderness Resp normal respiratory effort and clear to auscultation bilaterally Effort and Inspection: Negative for respiratory distress or pain with movement Auscultation: Negative for rhonchi, wheezes or diminished lung sounds Cardio regular rate, regular rhythm, S1 normal heart sound, S2 normal heart sound and no murmurs Peripheral Pulses: pulses 2+ throughout GI normal to inspection, nondistended, normoactive bowel sounds, soft to palpation, non-tender, non-distended and no masses Back/Spine no CVA tenderness and no thoracic nor lumbar tenderness Extremity normal to inspection General Extremety ED: Negative for edema General Extremity: Negative for edema Neuro oriented x3, CN's II-XII intact bilaterally, no sensory deficits noted and gait normal Neuro Narrative: Finger-nose and heel han testing within normal limits, negative Romberg, negative , Fundi benign Sensorium / Orientation: awake, alert, oriented to person, oriented to place and oriented to time Motor Exam: strength 5/5 throughout and strength abnormal Psych mental status grossly normal Skin no rashes or lesions noted and no wounds MDM MDM MDM Narrative Medical decision making narrative: Patient presents with sudden onset of headache. Presents hypertensive. In the differential would be intracranial hemorrhage or aneurysm. He is also been seeing a chiropractor and having work done on his neck therefore entertain possibility of a arterial dissection of the neck. IV line established. CBC with differential white count 5.0 with hemoglobin 15 and platelet count of 242. Chemistries unremarkable. Did have slight elevation of his AST at 38 and ALT at 65 which he has had in the past. Patient had a CTA of the head and neck which showed no evidence of hemorrhage or aneurysm or dissection. Patient was medicated with Reglan and Benadryl and a liter normal saline fluid bolus and symptoms essentially resolved. He feels markedly improved. This point he will be discharged to home. Advised to follow-up with his primary care physician within next 3 to 5 days. Lab Data Attestation: I reviewed the patient's lab results. Labs: Laboratory Results - last 24 hr 10/21/23 22:15 WBC 5.0 RBC 4.79 Hgb 15.2 Hct 43.2 MCV 90.2 MCH 31.7 MCHC 35.2 RDW Std Deviation 40.1 RDW Coeff of Rose 12.4 Plt Count 242 MPV 8.9 Immature Gran % (Auto) 0.200 Neut % (Auto) 59.4 Lymph % (Auto) 28.2 [place] % (Auto) 8.4 Eos % (Auto) 3.0 Baso % (Auto) 0.8 Absolute Neuts (auto) 3.0 Absolute Lymphs (auto) 1.41 Nucleated RBC % 0 Sodium 138 Potassium 3.6 Chloride 104 Carbon Dioxide 27.0 Anion Gap 7 BUN 15 Creatinine 1.03 Estim Creat Clear Calc 102.08 Est GFR (MDRD) Af Amer 94 Est GFR (MDRD) Non-Af 78 BUN/Creatinine Ratio 14.6 Glucose 147 H Calcium 9.0 Total Bilirubin 0.50 Direct Bilirubin 0.18 AST 38 H ALT 65 H Alkaline Phosphatase 67 Total Protein 6.9 Albumin 3.8 Globulin 3.1 Radiography Diagnostic Testing: Clinical Impression(s) from Imaging Studies Head/Neck CTA 10/21/23 22:07 IMPRESSION: CT ANGIOGRAPHY HEAD AND NECK WITH INTRAVENOUS CONTRAST: Negative CTA carotid and CTA brain. CT HEAD WITHOUT INTRAVENOUS CONTRAST: Negative head/brain CT without intravenous contrast. Electronically Signed: Rajesh Aden MD at 23:48 EDT , Discharge Plan Triage Chief Complaint: Headache ED Provider: Samreen Babcock Dx/Rx/DC Orders Clinical Impression: Headache Instructions: ED Headache Unspecified, ED Pain, Acute, Uncertain Cause Prescriptions: No Action albuterol sulfate [Ventolin HFA] 1 INHALER inhaler 1 puff inhalation Q4H PRN PRN (Reason: Dyspnea) escitalopram oxalate 10 MG tablet 20 mg PO DAILY Patient Comments: takes 20 mg tablet for seasonal depression as of 05/06/23 hydrochlorothiazide 25 MG tablet 12.5 mg PO DAILY loratadine 10 MG tablet 10 mg PO DAILY fluticasone propion-salmeterol [Advair Diskus] 100-50 mcg/dose blister with device 1 inh inhalation DAILY lisinopril 40 mg tablet 40 mg PO DAILY Patient Comments: TAKE 1 TABLET BY MOUTH ONCE DAILY Primary Care Provider: Mervat Avina Referrals: Mervat Avina MD [Primary Care Provider] - 3-5 Days Print Language: Sinhala Disposition Disposition: Home, Self Care
[2023-10-21] MEDS: Metoclopramide 10 MG/2 ML Vial IV (22:16)
[2023-10-21] MEDS: 0.9% Normal Saline (1000mL) 1,000 ML 1000 ML IV (22:16)
[2023-10-21] MEDS: DiphenhydrAMINE 50 MG/ML Syringe 25 MG IV (22:17)
[2023-10-21 22:25] LABS: Absolute Lymphocyte Count 1.41 X10^3/uL (0.83-4.51); Basophil# 0.04 X10^3/uL; Basophil% 0.8 % (0-1); Eosinophil# 0.15 X10^3/uL; Hematocrit 43.2 % (40-54); Hemoglobin 15.2 g/dL (13.0-16.5); Lymphocyte # 1.41 X10^3/ul (0.83-4.51); Lymphocyte % 28.2 % (19-41); Mean Corp Hgb Conc 35.2 g/dL (32-36); Mean Corpuscular Hgb 31.7 pg (27.0-32.0); Mean Corpuscular Volume 90.2 fL (80-94); Mean Platelet Vol. 8.9 fl (6.2-12.0); Monocyte# 0.42 X10^3/uL; Monocyte% 8.4 % (0-10); NRBC Flagged by Analyzer 0 % (0-5); Neutrophil # 2.97 X10^3/uL (2.7-7.7); Neutrophil % 59.4 % (47-70); Platelet Count 242 K/mm3 (150-450); RBC Distribution Width CV 12.4 % (11.6-14.6); RBC Distribution Width SD 40.1 fl (35.1-43.9); Red Blood Count 4.79 M/mm3 (4.6-6.2)
[2023-10-21] MEDS: LORazepam 2 MG/ML Syringe 1 MG IV (22:39)
[2023-10-21 22:40] LABS: AST(SGOT) 38 U/L (15-37); Alanine Aminotransfer ALT/SGPT 65 U/L (16-61); Albumin, Serum 3.8 g/dL (3.2-5.0); Alkaline Phosphatase 67 U/L (45-117); Anion Gap 7 (5-15); BUN 15 mg/dL (7-18); BUN/Creat Ratio 14.6 RATIO (10-20); Bilirubin, Direct 0.18 mg/dL (0.00-0.30); Chloride 104 mmol/L (98-107); Creatinine, Serum 1.03 mg/dL (0.70-1.30); EST Glomerular Filtration Rate 78 mL/min (>60); Est Glom Filt Rate - Afr Amer 94 mL/min (>60); Estimated Creatinine Clearance 102.08 ml/min; Globulin 3.1 g/dL (2.2-4.2); Glucose 147 mg/dL (74-106); Potassium 3.6 mmol/L (3.5-5.1); Protein, Total 6.9 g/dL (6.4-8.2); Sodium Level 138 mmol/L (136-145)
[2023-10-21 23:16] VITALS: BP 179/88; PULSE 79; RESP 20; O2SAT 94
[2023-10-22 00:03] VITALS: BP 176/92; PULSE 75; RESP 20; TEMP 36.6; O2SAT 94
== END 2023-10-22 00:03 | disposition home or self-care (01) ==
PROVIDERS: Emergency Provider Emergency Medicine; PCP Internal Medicine; Visit Provider Emergency Medicine
DX: R51.9 Headache, unspecified (principal); J45.909 Unspecified asthma, uncomplicated; F41.9 Anxiety disorder, unspecified; F32.A Depression, unspecified; Z79.51 Long term (current) use of inhaled steroids; Z79.899 Other long term (current) drug therapy; Z87.891 Personal history of nicotine dependence
CPT/HCPCS: 70496; 70498; 80048; 80076; 85025; 96361; 96374; 96375; 99283; J7030; Q9967; A4216

== ENCOUNTER 2023-11-14 15:06 | Emergency (ER) | payer MEDICARE, SELFPAY ==
[2023-11-14] VITALS (7 sets, daily range): BP systolic 185–212; BP diastolic 85–119; PULSE 67–89; RESP 13–20; TEMP 36.4–36.6; O2SAT 96–98; BMI 38.7
--- NOTE | 2023-11-14 15:54 | EKG12_ITS ---
Test Reason : CP Blood Pressure : / mmHG Vent. Rate : 083 BPM Atrial Rate : 083 BPM P-R Int : 168 ms QRS Dur : 090 ms QT Int : 384 ms P-R-T Axes : 063 009 047 degrees QTc Int : 451 ms Normal sinus rhythm Normal ECG Confirmed by BREANA CARABALLO, MISSY ([id number]), video tape editor ISELA GILES ([id number]) on 11/16/2023 9:31:45 AM Referred By: HERMINIO/GERARD Confirmed By:MISSY TOUSSAINT MD
--- NOTE | 2023-11-14 16:00 | RAD_ITS ---
STUDY: X-RAY CHEST REASON FOR EXAM: Male, 63 years old. chest pain TECHNIQUE: AP portable COMPARISON: August 02, 2023 FINDINGS: Nonspecific interstitial thickening in the right lower lobe which is increased slightly in prominence since previous study possibly representing mild inflammatory changes. There is no demonstrated pleural abnormality. Normal size heart. Normal mediastinum and miles. Normal visualized pulmonary arteries. Normal visualized aortic arch and descending thoracic aorta. Dorsal spine and shoulders demonstrate degenerative changes. Normal visualized ribs, and clavicles. There is no demonstrated abnormality of the visualized soft tissue structures of the upper abdomen. RAD/Chest 1 View (Portable) IMPRESSION: Mild asymmetric nonspecific interstitial thickening possibly inflammatory. Clinical correlation recommended Electronically Signed: Alfonso Bello MD at 16:22 EDT ,
[2023-11-14] MEDS: Aspirin 81 MG TAB.CHEW 324 MG PO (16:02)
--- NOTE | 2023-11-14 16:10 | ED.VIS.CHEST ---
HPI History of Present Illness Chief Complaint: Chest Pain Informant: patient Onset/Context/Timing Onset: Today and Hours Activity at onset: gradual Timing: Continuous Quality: Positive for Dull Location: Substernal Current Severity: Mild Maximum Severity: Mild Worsened By: Nothing Relieved By: Nothing Associated Symptoms: Negative for Nausea, Vomiting, Diaphoresis, Dyspnea, Cough, Fever, Lightheadedness, Acid Reflux or Palpitations Narrative Narrative: 63-year-old male history of degenerative disc disease, anxiety and hypertension. History of asthma. No cardiac history. Negative stress test in the past. None recently. No prior heart cath. Today this morning he just felt some discomfort in his chest. Said he has been using his inhaler did not think it made a significant difference. He really did not have any significant wheezing. This was not associated with exertion. He was sitting at the bank felt lightheaded and again had this midsternal chest discomfort. No radiation to his neck jaw or back. No radiation to his left arm. Nothing particular made it better or worse. He denies any leg pain or swelling. No hemoptysis. Patient quit smoking 30 years ago. He denies any recent illness. Prior Similar Symptoms: Yes Recent Illness/Hospitalization: No CVD Risk Factors: Positive for Hypertension and Diabetes; Negative for Family History 1' </=55 or Smoking PE Risk Factors: Negative for Recent Travel/Surgery, Recent Immobilization, Prior DVT or PE, Cancer or OCP + Smoking + >/=35 TAD Risk Factors: Negative for Marfan's Syndrome [facility] Medical History Degenerative disc disease Depression GERD (gastroesophageal reflux disease) Anxiety Asthma HTN (hypertension) Home Medications ?Medication ?Instructions ?Recorded ?Last Taken ?Type albuterol sulfate 90 mcg/actuation 1 puff inhalation Q4H PRN PRN 05/05/13 Unknown History aerosol inhaler (Ventolin HFA) Dyspnea escitalopram oxalate 10 mg tablet 20 mg PO DAILY 07/23/15 Unknown History hydrochlorothiazide 25 mg tablet 12.5 mg PO DAILY EDEMA 08/11/19 05/05/23 History loratadine 10 mg tablet 10 mg PO DAILY ALLERGIES 08/11/19 Unknown History fluticasone 100 mcg-salmeterol 50 1 inh inhalation DAILY 02/17/23 Unknown History mcg/dose blistr powdr for inhalation (Advair Diskus) lisinopril 40 mg tablet 40 mg PO DAILY HTN 05/06/23 05/05/23 History Allergy/AdvReac Type Severity Reaction Status Date / Time meloxicam Allergy Anaphylaxis Verified 10/21/23 21:19 citalopram AdvReac Vomiting Verified 10/21/23 21:19 verapamil AdvReac Nausea Verified 10/21/23 21:19 Surgical History History of total right hip replacement Social History Smoking Status: Former smoker ROS ROS ED ROS Narrative Chest discomfort. Review of Systems ROS Unobtainable: due to encephalopathy Constitutional Constitutional ED: Denies chills or fever(s) Eyes Eyes: Reports none ENT ENT ED: Reports ear pain Cardiovascular Cardiovascular: Reports as per HPI and chest pain; Denies orthopnea, palpitations, paroxysmal nocturnal dyspnea or racing heartbeat Respiratory/Chest Respiratory/Chest: Denies cough, dyspnea, dyspnea on exertion, orthopnea or paroxysmal nocturnal dyspnea Gastrointestinal Gastrointestinal: Denies abdominal pain, constipation, diarrhea, melena, nausea or vomiting Genitourinary Genitourinary ED: Denies dysuria or hematuria Musculoskeletal Musculoskeletal: Denies arthralgias, back pain, myalgias or neck pain Integumentary Denies abscess or Abrasions Neurologic Neurologic: Denies headache(s) Psychiatric Psychiatric: Denies anxiety Endocrine Endocrinology: Denies cold intolerance Hematologic/Lymphatic Hematologic/Lymphatic: Denies easy bleeding, easy bruising or lymphadenopathy Allergic/Immunologic Allergic/Immunologic ED: Denies mouth swelling, tongue swelling or urticaria EXAM Physical Exam Narrative Exam Narrative: 63-year-old male vital signs stable afebrile. Does look septic toxic no acute distress. +96% on room air no signs hypoxia. H EENT exam unremarkable. Neck nontender JVD. Lungs clear to auscultation bilaterally. Heart regular rate and rhythm no murmur rate about 90. Chest wall and ribs nontender. Abdomen soft nontender. Moving all 4 extremities. 5-5 director environmental strength. Equal symmetrical brisk radial pulses. Calves are nontender without edema or cords. Patient is awake and alert. Const Vital Signs: 11/14/23 15:07 11/14/23 15:54 11/14/23 16:07 Temperature 98 F Temperature Source Temporal Pulse Rate 89 77 Respiratory Rate 16 16 Blood Pressure 203/105 H 206/112 H Blood Pressure Mean 137 143 Pulse Ox 96 98 Oxygen Delivery Method Room Air Room Air Room Air 11/14/23 17:00 11/14/23 18:00 11/14/23 19:00 Temperature Temperature Source Pulse Rate 76 67 78 Respiratory Rate 16 13 20 H Blood Pressure 185/115 H 189/85 H 212/116 H Blood Pressure Mean 138 119 148 Pulse Ox 98 96 97 Oxygen Delivery Method Room Air 11/14/23 20:00 Temperature Temperature Source Pulse Rate 70 Respiratory Rate 16 Blood Pressure 210/119 H Blood Pressure Mean 149 Pulse Ox 97 Oxygen Delivery Method Room Air Positive well nourished and well developed; Negative for cachectic, contractures or unkempt General Appearance ED: well developed and NAD; Negative for unkempt, cachectic, contractures or pallor Nutritional Appearance: Negative for cachectic HEENT Reports moist mucous membranes; Denies dry mucous membranes normocephalic and atraumatic; Negative for trauma or tenderness Mouth ED: No dry mucous membranes Mouth: No dry mucous membranes Eyes PERRL and EOMs intact bilaterally General Eye ED: Negative for pale conjunctiva or scleral icterus Neck no lymphadenopathy, supple and no JVD General: Negative for tenderness Chest Wall inspection of chest normal and palpation of chest normal Resp normal respiratory effort and clear to auscultation bilaterally Effort and Inspection: Negative for respiratory distress Auscultation: Negative for rales, rhonchi, wheezes or diminished lung sounds Cardio regular rate, regular rhythm, S1 normal heart sound, S2 normal heart sound and no murmurs Rate: Negative for bradycardia or tachycardic Rhythm: Negative for abnormal rhythm Peripheral Pulses: pulses 2+ throughout GI normal to inspection, nondistended, normoactive bowel sounds, soft to palpation, non-tender, non-distended and no masses Back/Spine no CVA tenderness and no thoracic nor lumbar tenderness General Back: Negative for CVA tenderness Cervical Spine: Negative for cervical spine tenderness Extremity normal to inspection General Extremety ED: Negative for edema, pulses abnormal or tenderness General Extremity: Negative for edema or pulses abnormal Neuro oriented x3 and CN's II-XII intact bilaterally Neuro Narrative: NIH equals 0. Sensorium / Orientation: awake, alert, oriented to person, oriented to place and oriented to time; Negative for confused, lethargic or stuporous Motor Exam: strength 5/5 throughout Psych mental status grossly normal Appearance: Negative for unkempt Attitude: No agitated Mood & Affect: Negative for depressed, anxious or tearful Skin no rashes or lesions noted and no wounds General Skin Exam: Negative for jaundice or pallor Rashes: No rashes noted Trauma: Negative for abrasion, laceration or puncture MDM MDM MDM Narrative Medical decision making narrative: 63-year-old male with nonexertional atypical not reproducible chest discomfort. No history of DVT or PE or risk factors. No hemoptysis. No leg pain or swelling. No reproducible pain. Undergo cardiac workup. He has a normal neurologic exam. Repeat exam patient doing well at 7:45 PM. We do lengthy discussion. His tests are unremarkable. His EKG and chest x-ray look good. I am concerned because of his exertional dyspnea. It could be from his asthma. He has not had a cardiac workup for years or a stress test for years. I would prefer that he has that done. He is under a lot of stress multiple family members have recently passed. There is some family dispute between him and his sister currently. He is under a lot of stress at work. He really does not want to stay. Will get a second troponin and then he will make a decision if he wants to stay and get a stress test or do this as an outpatient. Unchanged. I spoke to Dr. Bains on-call for his primary care physician Dr. Mervat Avina's. Patient will call and ensure outpatient follow-up for outpatient stress testing. He knows return if worse. He did not want to be admitted. History & Record Review Additional record(s) reviewed:: Prior inpatient record, Prior outpatient record, Prior ED visit and Prior labs Lab Data Attestation: I reviewed the patient's lab results. Lab results narrative: CBC normal. White count of 4. H&H 14 and 43. Platelets 235. Electrolytes unremarkable gap 8. Normal BUN and creatinine of 13 and 1. Glucose 145. Troponin normal at 9. 2-hour troponin is 9. Chest x-ray unremarkable. EKG unremarkable. Labs: Laboratory Results - last 24 hr 11/14/23 11/14/23 16:01 19:50 WBC 4.8 RBC 4.78 Hgb 14.9 Hct 43.1 MCV 90.2 MCH 31.2 MCHC 34.6 RDW Std Deviation 41.1 RDW Coeff of Rose 12.5 Plt Count 235 MPV 9.0 Immature Gran % (Auto) 0.200 Neut % (Auto) 58.7 Lymph % (Auto) 28.1 [place] % (Auto) 10.3 H Eos % (Auto) 1.9 Baso % (Auto) 0.8 Absolute Neuts (auto) 2.8 Absolute Lymphs (auto) 1.36 Nucleated RBC % 0 Sodium 137 Potassium 3.5 Chloride 103 Carbon Dioxide 26.0 Anion Gap 8 BUN 13 Creatinine 1.01 Estim Creat Clear Calc 103.88 Est GFR (MDRD) Af Amer 96 Est GFR (MDRD) Non-Af 80 BUN/Creatinine Ratio 12.9 Glucose 145 H Calcium 9.2 Troponin I High Sens 9 9 Radiography Chest X-Ray - ED: 1 View, Read by ED Physician, Read by Radiologist, Heart, Lungs, Mediastinum, Bony Structures, No Acute Disease and Chronic Changes Diagnostic Testing: Clinical Impression(s) from Imaging Studies Chest X-Ray 11/14/23 16:00 IMPRESSION: Mild asymmetric nonspecific interstitial thickening possibly inflammatory. Clinical correlation recommended Electronically Signed: Alfonso Bello MD at 16:22 EDT , Chest x-ray, portable, single view interpreted by myself and radiology shows no acute abnormality. Rhythm Strip Rhythm Strip: Sinus Rhythm Rate: 83 Ectopy: None EKG Initial EKG: Attestation: I personally reviewed and interpreted this EKG as follows: Interpretation: Sinus Rhythm and No Acute Injury Pattern Comments: Normal sinus rhythm rate 83 no acute signs of KS or ischemia. Discharge Plan Triage Chief Complaint: Chest Pain Other Complaint: Dizziness ED Provider: Torey Friedman Dx/Rx/DC Orders Clinical Impression: Chest pain, History of hypertension, History of asthma, Exertional dyspnea Instructions: ED Chest Pain, Uncertain Cause Prescriptions: No Action albuterol sulfate [Ventolin HFA] 1 INHALER inhaler 1 puff inhalation Q4H PRN PRN (Reason: Dyspnea) escitalopram oxalate 10 MG tablet 20 mg PO DAILY Patient Comments: takes 20 mg tablet for seasonal depression as of 05/06/23 hydrochlorothiazide 25 MG tablet 12.5 mg PO DAILY loratadine 10 MG tablet 10 mg PO DAILY fluticasone propion-salmeterol [Advair Diskus] 100-50 mcg/dose blister with device 1 inh inhalation DAILY lisinopril 40 mg tablet 40 mg PO DAILY Patient Comments: TAKE 1 TABLET BY MOUTH ONCE DAILY Primary Care Provider: Mervat Avina Referrals: Mervat Avina MD [Primary Care Provider] - 1 Day Activity Restrictions/Additional Instructions: I spoke to Dr. Ackerman from the [facility]. Covering for Dr. Mervat Avina's. He said call the office first thing Sunday morning. They will try to get you in for a stress test as soon as possible. Return if you are feeling worse. Take it easy. No heavy exercise or work. Take a daily baby aspirin. If you are feeling worse or gets significantly short of breath or chest pain return. Print Language: [place] Disposition Disposition: Home, Self Care
[2023-11-14 16:18] LABS: Absolute Lymphocyte Count 1.36 X10^3/uL (0.83-4.51); Absolute Neutrophil Count 2.8 X10^3/uL (2.0-7.7); Basophil# 0.04 X10^3/uL; Basophil% 0.8 % (0-1); Eosinophil# 0.09 X10^3/uL; Eosinophils% 1.9 % (0-5); Hematocrit 43.1 % (40-54); Hemoglobin 14.9 g/dL (13.0-16.5); Lymphocyte # 1.36 X10^3/ul (0.83-4.51); Lymphocyte % 28.1 % (19-41); Mean Corp Hgb Conc 34.6 g/dL (32-36); Mean Corpuscular Hgb 31.2 pg (27.0-32.0); Mean Corpuscular Volume 90.2 fL (80-94); Monocyte% 10.3 % (0-10); NRBC Flagged by Analyzer 0 % (0-5); Neutrophil # 2.84 X10^3/uL (2.7-7.7); Neutrophil % 58.7 % (47-70); Platelet Count 235 K/mm3 (150-450); RBC Distribution Width CV 12.5 % (11.6-14.6); RBC Distribution Width SD 41.1 fl (35.1-43.9); Red Blood Count 4.78 M/mm3 (4.6-6.2); White Blood Count 4.8 K/mm3 (4.4-11.0)
[2023-11-14 16:38] LABS: Anion Gap 8 (5-15); BUN 13 mg/dL (7-18); BUN/Creat Ratio 12.9 RATIO (10-20); Calcium,Total 9.2 mg/dL (8.5-10.1); Chloride 103 mmol/L (98-107); Creatinine, Serum 1.01 mg/dL (0.70-1.30); EST Glomerular Filtration Rate 80 mL/min (>60); Est Glom Filt Rate - Afr Amer 96 mL/min (>60); Estimated Creatinine Clearance 103.88 ml/min; Glucose 145 mg/dL (74-106); Potassium 3.5 mmol/L (3.5-5.1); Sodium Level 137 mmol/L (136-145); Troponin-I HS 9 pg/mL (3.0-78.0)
[2023-11-14 20:28] LABS: Troponin-I HS 9 pg/mL (3.0-78.0)
== END 2023-11-14 21:19 | disposition home or self-care (01) ==
PROVIDERS: Emergency Provider Emergency Medicine; PCP Internal Medicine; Visit Provider Emergency Medicine
DX: R07.9 Chest pain, unspecified (principal); E11.9 Type 2 diabetes mellitus without complications; I10 Essential (primary) hypertension; J45.909 Unspecified asthma, uncomplicated; Z87.891 Personal history of nicotine dependence
CPT/HCPCS: 71045; 80048; 84484; 85025; 93005; 99285; A4216

== ENCOUNTER 2024-12-22 14:00 | Outpatient (RCR) | payer MEDICARE, SELFPAY ==
--- NOTE | 2024-11-26 16:09 | HP.PTEVAL_ITS ---
Patient's Visit Information Visit Information Visit Information: ANTOINE PASCUAL is a 64 year old M referred to Physical Therapy by Dr. Jimenez Holt MD with a diagnosis of Radiculopathy lumbar region, R hip bursitis. Date of Evaluation: 11/26/24 Physical Therapist: Aren Jeffers DPT Visit Plan Frequency: 2x /Week Duration: 4 Weeks Plan: 1) prone lying, LISA if reducing symptoms. If not helpful add in SKTC I gave him both as both has some slight benefit. 2) neutral spine core strengthening. He is seeing chiro as well. If symptoms are minimal okay to jump right into neutral spine core strengthening. Subjective Subjective: Pt is here today for her initial evaluation with diagnosis of R greater trochanteric bursitis, Lumbar radiculopathy down his R leg. Pt. reports getting up and down causes increased pain. pt. reports pain that does down his leg. Pt. does not work at this point in time. Pt. reports no mech of injury. He does have a history of R FLY, 2016. Pt. reports getting up and increased pain. He reports every time he gets up and down causes his increased pain. Pt. reports increased pain to the front of hip thigh at times. Pt. did have an adjustment with chiro that went well for a few days. Pt. is to follow up with them shortly. Pt. reports the mornings are the worst, until he loosens up. Pain R hip: Pain Intensity (Out of 10): 3 Pain Intensity Range: 3 and 8 Objective Objective: POSTURE: Pt. has slight flexed posture. Pt. marked lateral shift noted. PALPATION: Pt. has some mild tenderness along R greater trochanter NEURO: Pt. has normal sensation ROM: Lumbar spine: flexion mod increase NW back of legs, ext mod loss increase NW, SB mod loss bilat, rotation mod loss bilat. MMT: Pt. hare marked weakness of his RLE compared to LLE. Pt. reports having some weakness with mobility at times. RLE: knee: ext 22.4#, flexion 17.8# LLE: knee ext: 29.8#, flex 24.9#. GAIT: Pt. has fairly normal gait pattern, no marked lateral sway noted. Special Tests L/S Slump test left side: Negative L/S Slump test right side: Positive L/S Left Straight Leg Raise: Negative L/S Right Straight Leg Raise: Negative R Hip Scour: Negative R Hip RADHA - Intraarticular Pathology: Negative R Hip FADDIR - Labrum: Negative R Hip Trendelenberg - Glut Medius: Negative R Hip Sydni - IT Band: Negative Balance/Special Test Scores Lower Extremity Functional Score: 40 Goals Goal 1:: LTG: Pt. to be I with HEP. Goal Time Frame: 4-6 Weeks Goal 2:: STG: pt. to have no pain with walking up in the AMs. Goal Time Frame: 2-4 Weeks Goal 3:: LTG: Pt. to complete all ADLs without increase in symptoms. Goal Time Frame: 4-6 Weeks Goal 4:: LTG: Pt. to reports no radicular symptoms in RLE with all sitting recreational activities Goal Time Frame: 4-6 Weeks Rehabilitation Potential Physical Therapy Diagnosis: Pt. has signs and symptoms consistent with Radiculopathy lumbar region, R hip bursitis. Pt. had more signs suggesting radiculopathy today. Pt. has some RLE weakness compared to L side. He did not have much symptoms with hip mobility today. I was able to reproduce some symptoms with lumbar motions. He would benefit from PT to address the above limitations progressing back to all recreational activities without limitations. Rehabilitation Potential: Good Anticipated Interventions Patient/Client Instruction: Educate patient on: Condition, Plan of Care, Risk Factors and Benefits of Fitness Program For the Purpose of:: To foster healthy habits, To improve decision making, To facilitate caregiver knowledge, To improve self management, To prevent re- injury, To improve ability to perform tasks related to life management and To improve tolerance to ADL's Therapeutic Exercise to Include: Strength training, Power training, Postural training, Flexibilty training, Passive ROM, Active ROM, Dynamic Lumbar Stabilization and Sanjeev Exercises For the Purpose of:: To decrease pain, To decrease swelling/inflammation, To increase ROM, To improve nutrient delivery to tissue, To increase oxygenation perfusion, To improve muscle performance and motor function, To improve health of tissue, To decrease soft tissue restriction and To increase flexibility/ROM Manual Therapy Techniques to Include: Mobilization and Passive ROM For the Purpose of:: To decrease pain, To decrease swelling/inflammation and To increase ROM Text: Thank you for the opportunity to evaluate your patient. For Medicare and Medicare HMO plans, please review the plan of care and approve it. It will need to be FAXED BACK to us at [phone] for Medicare purposes. For Medicare only, by signing this I certify the plan of care. Please let me know if there are questions or concerns regarding this plan of care. Physician Signature: Date:_
== END 2024-12-22 19:00 | disposition home or self-care (01) ==
LOC: PT 14:00
PROVIDERS: PCP Internal Medicine; Referring Provider Specialist; Visit Provider Specialist
DX: M54.16 Radiculopathy, lumbar region (principal); M70.61 Trochanteric bursitis, right hip
CPT/HCPCS: 97110; 97161